=== PATIENT | male | born 1965 | race Caucasian/White ===

== ENCOUNTER 2017-11-13 21:15 | Inpatient (IN) ==
[2017-11-13] MEDS ORDERED: Naloxone 0.4 MG/ML INJ IVP PRN (22:35)
--- NOTE | 2017-11-13 22:42 | Internal Med History&Physical ---
Date of Encounter: 11/13/17 Time of Encounter: 22:39 Internal Medicine - H&P: HPI Chief complaint: Dyspnea Admitted From: Direct Admit Plans for Post Hospital Care: Home History of present illness: Mr. Sen is a 52 year old male with histor of COPD on 3 L chronically, chronic pain, Tobacco abuse who is transferred from [facility] due to worsening respiratory status. From documentations and talking to the patient and his significant other, the patient presented there with SOB for 3-4 days with associated productive cough. He was wheezing at the time but not here today. No fevers but chills. He was found to have bilateral infiltrates and was admitted yesterday night for COPD exacerbation and pneumonia. He was on about 2 L O2. This evening he apparently had sudden change in respiratory status and became tachypnic and tachycardic. They had to go up on his O2 needs. There was no hospitalist during the night and the hospitalist there called after hours to see if the patient can be transferred to here and he was accepted. Upon transfer , he was tachypnic and was having conversational dyspnea. He denied headache, fever, nausea, vomiting, chest pain, abdominal pain, diarrhea, constipation, urinary symptoms, or neurological symptoms. His significant other states that about 5 years ago he had an accidental fall and broke multiple ribs bilaterally requiring chest tube placement multiple times over the years. Past Med Surg Social Fam HX - Past Medical History Medical history: asthma, COPD, other Psychiatric history: depression - Past Surgical History Surgical History: no surgical history, other - Social History Smoking Status: Current every day smoker Smokeless Tobacco Status: No Alcohol use: none Drug use: none Internal Medicine - H&P: Meds Albuterol Sulfate [Albuterol Inhaler] 2 puff IH Q6HR 02/01/16 [History] Budesonide/Formoterol 160/4.5 [Symbicort 160/4.5] 1 puff IH BIDR 02/01/16 [ History] Gabapentin [Neurontin] 300 mg PO TID 02/01/16 [History] Oxycodone HCl/Acetaminophen [Percocet 10-325 mg Tablet] 1 each PO Q6H 05/10/17 [ History] 3 Allergy/AdvReac Type Severity Reaction Status Date / Time propoxyphene Allergy Rash Verified 11/12/17 16:42 [From Darvanessat-N] tramadol Allergy Palpitation Verified 02/01/16 11:52 s All Systems PM: A 10-system review of systems was performed and is negative for pertinent findings except as documented above in the HPI. Review of systems: All systems reviewed are negative except for what is mentioned above - Constitutional Vitals: Temp Pulse Resp BP Pulse Ox 97.6 F 112 26 179/55 96 11/13/17 22:35 11/13/17 22:35 11/13/17 22:35 11/13/17 22:35 11/13/17 22:35 Exam: GEN: NAD HEENT: AT, NC, No cyanosis, oral mucosa is moist, No JVD Lymphatics: No lymphadenoapthy Eyes: Extrocular muscles intact, anicteric CVS:RRR. S1, S2, No m/r/g RESP: Diminished breath sounds with coarse breath sounds throughout. ABD: Soft, NT, ND, +BS EXT: No edema, No rashes, 2+ DP NEURO: Nonfocal, CN II-XII intact, No focal motor or sensory deficits Psych: Cooperative, Not anxious or depressed Internal Med - H&P Results - Labs CBC & Chem 7: 11/13/17 23:03 - Assessment and plan (1) Acute respiratory failure with hypoxia Current Visit: Yes Status: Acute Assessment and plan: Was being treated for CAP and COPD exacerbation at [facility]. had worsening of respiratory status while there and transfered here. Currently on oxymask. Tachycardic. Will repeat basic labs, check lactic acid, check a CXR, ABG, BNP, D -dimers, EKG, Trops. O2 support and nebs for now and treat underlying causes as below. Management may change pending further work up. Consider a consult to pulm in the am. (2) Acute exacerbation of chronic obstructive airways disease Current Visit: No Status: Acute Assessment and plan: Will resume patient on IV steroids and nebs. O2 support and wean as tolerated. ABG now. May need Bipap. (3) Community acquired pneumonia Current Visit: No Status: Acute Assessment and plan: c/w levaquin for now Afebrile. check sputum cultures. check urine strep and legionella. check resp panel Qualifiers: Laterality: unspecified laterality Qualified Code(s): J18.9 - Pneumonia, unspecified organism (4) DVT prophylaxis Current Visit: Yes Status: Acute Assessment and plan: heparin SQ - Time Spent With Patient Total time spent is greater than 50% in coordination of care (as documented) at patient's floor/unit and/or counseling patient:
[2017-11-13 23:25] LABS: Basophils % 0.1 %; Hematocrit 35.5 % (37.5-50.1); Hemoglobin 11.6 g/dL (12.9-16.9); Immature Granulocytes % 0.6 % (0-4); Lymphocytes # 0.4 K/mcL (0.6-4.6); Lymphocytes % 3.3 %; Mean Corpuscular HGB Conc 32.7 g/dL (31.6-35.5); Mean Corpuscular Hemoglobin 31.4 pg (28.0-33.3); Mean Corpuscular Volume 96.2 fL (83.0-100.0); Mean Platelet Volume 9.4 fL (9.4-12.4); Monocytes # 0.4 K/mcL (0.0-1.3); Monocytes % 3.4 %; Neutrophils # 10.8 K/mcL (1.6-8.9); Platelet Count 299 K/mcL (140-400); Red Blood Count 3.69 M/mcL (4.19-5.50); Red Cell Distribution Width 13.9 % (11.5-14.5); Segmented Neutrophils % 92.6 %
[2017-11-13] MEDS ORDERED: *HR* OxyCODONE/APAP 10/325 TABLET PO SCH (23:45)
[2017-11-13 23:49] LABS: Alanine Aminotransferase 63 Units/L (7-52); Albumin 3.3 g/dL (3.5-5.7); Alkaline Phosphatase 119 Units/L (34-104); Aspartate Amino Transferase 40 Units/L (13-39); BUN/Creatinine Ratio 25 (6-26); Bilirubin,Total 0.3 mg/dL (0.3-1.0); Blood Urea Nitrogen 15 mg/dL (6-20); Calcium 9.1 mg/dL (8.6-10.3); Carbon Dioxide 29 mEq/L (23-29); Chloride 100 mEq/L (98-107); Globulin 3.4 g/dL (2.4-3.5); Glucose 285 mg/dL (70-105); Osmolality,Calculated 299 (280-300); Potassium 3.5 mEq/L (3.5-5.1); Sodium 139 mEq/L (136-145); Total Protein 6.7 g/dL (6.4-8.9); eGFR For African Americans > 60 (> 60); eGFR For Non-African Americans > 60 (> 60)
[2017-11-14] MEDS ORDERED: methylPREDNISolone 125 MG/2 ML VIAL IVP SCH
[2017-11-14] MEDS ORDERED: Acetaminophen 325 MG TABLET PO PRN ×2 (00:03→03:44)
[2017-11-14] MEDS: Ipratropium/Albuterol Neb 3 ML IH PRN (00:15)
[2017-11-14] MEDS ORDERED: Isovue-370 500 ML INFUS..BTL IV ONE ×2 (00:17→03:44)
[2017-11-14 00:35] LABS: Adenovirus Not Detected (Not Detect); Bordetella Pertussis Not Detected (Not Detect); Chlamydophila pneumoniae Not Detected (Not Detect); Coronavirus 229E Not Detected (Not Detect); Coronavirus HKU1 Not Detected (Not Detect); Coronavirus NL63 Not Detected (Not Detect); Coronavirus OC43 Not Detected (Not Detect); Human Metapneumovirus Not Detected (Not Detect); Human Rhinovirus/Enterovirus Not Detected (Not Detect); Influenza A Subtype 2009 H1 Not Detected (Not Detect); Influenza A Untypeable Not Detected (Not Detect); Influenza B Not Detected (Not Detect); Mycoplasma pneumoniae Not Detected (Not Detect); Parainfluenza Virus 1 Not Detected (Not Detect); Parainfluenza Virus 2 Not Detected (Not Detect); Parainfluenza Virus 3 Not Detected (Not Detect); Parainfluenza Virus 4 Not Detected (Not Detect); Respiratory Syncytial Virus Not Detected (Not Detect)
[2017-11-14] MEDS ORDERED: Ipratropium/Albuterol Neb 3 ML ONE (00:55)
[2017-11-14] MEDS ORDERED: Ipratropium/Albuterol Neb 3 ML IH PRN (00:55)
[2017-11-14] MEDS ORDERED: *HR* Heparin 5,000 UNIT/ML VIAL IVP PRN ×4 (01:22→03:44)
[2017-11-14] MEDS ORDERED: *HR* Heparin 5,000 UNIT/ML VIAL IVP ONE (01:22)
[2017-11-14] MEDS ORDERED: *HR* LORazepam 2 MG/ML VIAL ONE (01:23)
[2017-11-14] MEDS ORDERED: *HR* Metoprolol 5 MG/5 ML VIAL IVP ONE (01:29)
[2017-11-14] MEDS ORDERED: Heparin 25,000 UNIT/500 ML D5W 25,000 UNIT/500 ML BAG IVC SCH (01:30)
--- NOTE | 2017-11-14 01:38 | Event Note ---
Date of Encounter: 11/14/17 Time of Encounter: 01:36 Patient's labs came back with elevated D-dimers. He is labored breathing villanueva. Tachycardic and hypertensives. He couldnt lay flat for an EKG or CTA chest as he was restless and hemodynamically unstable. ABG 7.43, PCO2 46, PO2 57, HCO 31 D-dimers 961 Will start him on heparin empirically Bipap and transfer to ICU +/- intubation. CTA chest post hemodynamic stabilization. Ativan 2 mg IV now. Lopressor 5 mg IV as BP is in the 200s systolically. 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
[2017-11-14 02:56] LABS: Hematocrit 36.2 % (37.5-50.1); Hemoglobin 11.8 g/dL (12.9-16.9); Mean Corpuscular HGB Conc 32.6 g/dL (31.6-35.5); Mean Corpuscular Hemoglobin 31.1 pg (28.0-33.3); Mean Corpuscular Volume 95.5 fL (83.0-100.0); Mean Platelet Volume 9.3 fL (9.4-12.4); Platelet Count 300 K/mcL (140-400); Red Blood Count 3.79 M/mcL (4.19-5.50); Red Cell Distribution Width 13.8 % (11.5-14.5)
[2017-11-14 03:02] LABS: INR 1.4; Prothrombin Time 14.7 Seconds (9.4-12.1)
[2017-11-14 03:04] LABS: Activated Partial Thrombo Time 31.9 Seconds (26.0-36.0)
--- NOTE | 2017-11-14 03:05 | Pulmonology Consult Note ---
<Toni Pascual - Last Filed: 11/14/17 02:59> Date of Encounter: 11/14/17 Time of Encounter: 03:00 Assessment and Plan (1) Acute respiratory failure with hypoxia Current Visit: Yes Status: Acute Acute respiratory failure with hypoxia The patient is very distressed on oxymask, is not saturating well CXR demonstrates diffuse airspace disease suggestive of atypical pneumonia ABG demonstrates hypoxemia with slightly elevated pCO2 We will place the patient on BiPAP for now, carefully watch for need to intubate D-Dimer is elevated, we will get a CTA Chest when the patient can tolerate supine position (2) Community acquired pneumonia Current Visit: Yes Status: Acute Community acquired pneumonia Patient does technically meet SIRs criteria with tachycardia, tachypnea however I do think that this can more easily be explained by respiratory status I will check blood cultures, continue Levaquin Repeat ABG in the AM Qualifiers: Laterality: unspecified laterality Qualified Code(s): J18.9 - Pneumonia, unspecified organism (3) Acute exacerbation of chronic obstructive airways disease Current Visit: Yes Status: Acute Acute exacerbation of COPD We will use scheduled and PRN Duonebs IV Solumedrol History of Present Illness Consult date: 11/14/17 Requesting physician: Felicita So Reason for consult: dyspnea, COPD Chief complaint: Difficulty breathing History of present illness: Mr. Rai is a 52-year-old gentleman with history of COPD w/ 3 L of home O2 chronically presented to the [place] ED for shortness of breath for 3-4 days total. Apparently the patient had productive cough, and was generally short of breath. He was also very wheezy at that time. He was admitted to [place] for treatment of community-acquired pneumonia with acute exacerbation of COPD and was started on Levaquin. Overnight the patient became reportedly more dyspneic than prior with tachypnea and tachycardia and was not oxygenating appropriately so he was transferred to [facility] for more advanced care. He was initially placed on 2 N., however he became increasingly more distressed and was desaturating. There was concern the patient may require intubation due to respiratory fatigue, however he was stabilized on BiPAP. He was transferred to the ICU for more extensive respiratory care. Past Med Surg Social Fam HX - Past Medical History Medical history: asthma, COPD, other Psychiatric history: depression - Past Surgical History Surgical History: no surgical history, other - Social History Smoking Status: Current every day smoker Smokeless Tobacco Status: No Alcohol use: none Drug use: none Medications and Allergies Albuterol Sulfate [Albuterol Inhaler] 2 puff IH Q6HR 02/01/16 [History] Oxycodone HCl/Acetaminophen [Percocet 10-325 mg Tablet] 1 each PO Q6H 05/10/17 [ History] Fluticasone Furoate [Arnuity Ellipta] 1 puff IH DAILY 11/14/17 [History] Gabapentin [Neurontin] 600 mg PO QID 11/14/17 [History] Salmeterol Xinafoate [Serevent Diskus] 50 mcg IH DAILY 11/14/17 [History] 3 Allergy/AdvReac Type Severity Reaction Status Date / Time propoxyphene Allergy Rash Verified 11/14/17 12:58 [From Darvocet-N] tramadol Allergy Palpitation Verified 11/14/17 12:58 s All Systems: The remainder of the systems were reviewed and are negative Review of Systems: Constitutional: Denies fevers, chills, weight loss, generalized fatigue Head/Neck: Denies DANG, neck stiffness EENT: Denies vision changes/blurriness, rhinorrhea, congestion, sore throat CVS: Denies chest pain, palpitations, LARSEN, orthopnea, edema, PND Pulm: Admits to significant shortness of breath with sputum production on cough , denies hemoptysis. Admits to 3 L home O2 GI: Denies abdominal pain, nausea, vomiting, diarrhea, constipation, melena, hematemasis : Denies dysuria, increased frequency, urgency, hematuria Heme: Denies ease of bleeding or bruising MSK: Denies joint pain, limited ROM Skin: Denies rashes, ulcers, color changes Neuro: Denies DANG, paresthesias, focal deficits, ataxia Physical Examination Vital Signs: Vital Signs, Last 4 Hours Temp Pulse Resp BP Pulse Ox 11/14/17 02:00 28 169/98 98 11/14/17 01:16 97.9 F 130 30 158/137 100 11/13/17 23:59 105 159/93 11/13/17 23:31 97.6 F 169/106 Gen: Vitals noted. Moderately distressed oxymask HEENT: PERRL/EOMI, oropharynx clear, Normocephalic, atraumatic Neck: Supple. No adenopathy. Cardiac: RRR, no murmur, +S1/S2 Pulmonary: Diffuse wheezes with poor airflow b/l Abdomen: soft, nontender, BS noted, no guarding Back: Nontender throughout. MSK: ROM intact, no joint swelling noted Extremities: no BLE edema, nontender calf, no cyanosis or clubbing Neuro: A&Ox3, moves all extremities, no focal deficits Psych: Appropriate mood and behavior Results - Laboratory Findings CBC and BMP: 11/14/17 02:46 11/13/17 23:03 PT/INR, D-dimer D-Dimer 961 ng/mLFEU (0-500) H 11/13/17 23:03 Abnormal lab findings: Abnormal lab results WBC 11.4 K/mcL (4.3-11.1) H 11/14/17 02:46 RBC 3.79 M/mcL (4.19-5.50) L 11/14/17 02:46 Hgb 11.8 g/dL (12.9-16.9) L 11/14/17 02:46 Hct 36.2 % (37.5-50.1) L 11/14/17 02:46 MPV 9.3 fL (9.4-12.4) L 11/14/17 02:46 Neutrophils # 10.8 K/mcL (1.6-8.9) H 11/13/17 23:03 Lymphocytes # 0.4 K/mcL (0.6-4.6) L 11/13/17 23:03 D-Dimer 961 ng/mLFEU (0-500) H 11/13/17 23:03 Creatinine 0.59 mg/dL (0.70-1.30) L 11/13/17 23:03 Glucose 285 mg/dL (70-105) H 11/13/17 23:03 AST 40 Units/L (13-39) H 11/13/17 23:03 ALT 63 Units/L (7-52) H 11/13/17 23:03 Alkaline Phosphatase 119 Units/L (34-104) H 11/13/17 23:03 Troponin I 0.07 ng/mL (< 0.04) H* 11/13/17 23:03 B-Natriuretic Peptide 115 pg/mL (Less than 100) H 11/13/17 23:04 Albumin 3.3 g/dL (3.5-5.7) L 11/13/17 23:03 Albumin/Globulin Ratio 1.0 (1.1-2.2) L 11/13/17 23:03 - Clinical Findings Intake & Output: Intake & Output 11/13/17 11/13/17 11/14/17 15:59 23:59 07:59 Weight 70.7 kg Consult Discharge Plan - Plan Referrals: NONE,PCP [Primary Care Provider] - <Terrance Rodriges - Last Filed: 11/15/17 00:23> Date of Encounter: 11/15/17 All Systems: The remainder of the systems were reviewed and are negative Physical Examination Vital Signs: Vital Signs, Last 4 Hours Pulse Resp BP Pulse Ox 11/14/17 21:30 16 99 11/14/17 21:00 89 20 118/79 98 Results - Laboratory Findings CBC and BMP: 11/14/17 02:46 11/13/17 23:03 ABG ABG pH 7.41 pH Units (7.32-7.45) 11/14/17 04:53 ABG pCO2 55 mmHg (35-45) H 11/14/17 04:53 ABG pO2 94 mmHg (85-104) 11/14/17 04:53 ABG O2 Saturation 97 % (95-98) 11/14/17 04:53 PT/INR, D-dimer PT 14.7 Seconds (9.4-12.1) H 11/14/17 02:46 D-Dimer 961 ng/mLFEU (0-500) H 11/13/17 23:03 Abnormal lab findings: Abnormal lab results WBC 11.4 K/mcL (4.3-11.1) H 11/14/17 02:46 RBC 3.79 M/mcL (4.19-5.50) L 11/14/17 02:46 Hgb 11.8 g/dL (12.9-16.9) L 11/14/17 02:46 Hct 36.2 % (37.5-50.1) L 11/14/17 02:46 MPV 9.3 fL (9.4-12.4) L 11/14/17 02:46 Neutrophils # 10.8 K/mcL (1.6-8.9) H 11/13/17 23:03 Lymphocytes # 0.4 K/mcL (0.6-4.6) L 11/13/17 23:03 PT 14.7 Seconds (9.4-12.1) H 11/14/17 02:46 APTT 54.1 Seconds (26.0-36.0) H 11/14/17 16:49 D-Dimer 961 ng/mLFEU (0-500) H 11/13/17 23:03 ABG pCO2 55 mmHg (35-45) H 11/14/17 04:53 ABG HCO3 35 mEq/L (21-27) H 11/14/17 04:53 ABG Total CO2 37 mEq/L (20-26) H 11/14/17 04:53 ABG Base Excess 9 mEq/L (-2 to 3) H 11/14/17 04:53 Creatinine 0.59 mg/dL (0.70-1.30) L 11/13/17 23:03 Glucose 285 mg/dL (70-105) H 11/13/17 23:03 Lactic Acid 2.4 mmol/L (0.5-2.2) H 11/14/17 03:07 AST 40 Units/L (13-39) H 11/13/17 23:03 ALT 63 Units/L (7-52) H 11/13/17 23:03 Alkaline Phosphatase 119 Units/L (34-104) H 11/13/17 23:03 Troponin I 0.08 ng/mL (< 0.04) H* 11/14/17 09:38 B-Natriuretic Peptide 115 pg/mL (Less than 100) H 11/13/17 23:04 Albumin 3.3 g/dL (3.5-5.7) L 11/13/17 23:03 Albumin/Globulin Ratio 1.0 (1.1-2.2) L 11/13/17 23:03 - Microbiology Findings Microbiology Findings: Microbiology, Last 48 Hours 11/13/17 05:01 Legionella Antigen - Final Urine,Clean Catch 11/13/17 05:01 Streptococcus pneumoniae Antigen (M - Final Urine,Clean Catch - Clinical Findings Intake & Output: Intake & Output 11/14/17 11/14/1718 15:59 23:59 07:59 Intake Total 170 / 170 Output Total 1400 / 1400 Balance 170 / 170 -1400 / -1400 - Attending Attestation I saw and evaluated this patient and my medical decision-making was reviewed with the Resident Physician. I agree with the documented findings, disposition and treatment plan as described except to the extent set forth below. We independently had [id number] contact with the patient I spent 35 minutes of Critical Care time with this patient. It involved decision making of high complexity to assess, manipulate, and support vital organ system failure and/or to prevent further life threatening deterioration of the patient's condition. The time involved in the performance of separately reportable procedures was not counted toward critical care time. Patient seen and examined at bedside Labs, radiology, chart personally reviewed. Management was reviewed during multidisciplinary critical care rounds. 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 Ceftriaxone and Levofloxacin Heme/Onc:Labs reviewed Endo: Glucose Monitored Integ/MSK: Skin Care per routine ICU Nursing Protocol to prevent ulcers. Lines: All lines examined without evidence of infection : Dispo: High chance of respiratory failure CODE:Full Code
[2017-11-14] MEDS ORDERED: Naloxone 0.4 MG/ML INJ IVP PRN (03:44)
[2017-11-14] MEDS: Ipratropium/Albuterol Neb 3 ML IH SCH ×4 (04:00→21:30)
[2017-11-14] MEDS ORDERED: Ipratropium/Albuterol Neb 3 ML IH SCH (04:00)
[2017-11-14 04:59] LABS: ABG Base Excess 9 mEq/L (-2 to 3); ABG HCO3 35 mEq/L (21-27); ABG Oxygen Saturation 97 % (95-98); ABG PCO2 55 mmHg (35-45); ABG PH 7.41 pH Units (7.32-7.45); ABG PO2 94 mmHg (85-104); ABG TCO2 37 mEq/L (20-26)
[2017-11-14] MEDS: Heparin 25,000 UNIT/500 ML D5W 25,000 UNIT/500 ML BAG IVC SCH ×2 (05:09→10:44)
[2017-11-14] MEDS ORDERED: Bisacodyl 10 MG RECTAL SUPPOSITORY RC PRN (05:17)
[2017-11-14] MEDS ORDERED: *HR* OxyCODONE/APAP 10/325 TABLET PO SCH ×2 (05:45→06:00)
[2017-11-14] MEDS ORDERED: *HR* Heparin 5,000 UNIT/ML VIAL SQ SCH ×2 (06:00)
[2017-11-14] MEDS: methylPREDNISolone 125 MG/2 ML VIAL IVP SCH ×2 (08:57→17:48)
[2017-11-14] MEDS: Nicotine 21 MG PATCH.TD24 TD SCH (08:57)
[2017-11-14] MEDS: *HR* FentaNYL (PF) 100 MCG/2 ML VIAL IVP PRN ×2 (08:58→19:49)
[2017-11-14] MEDS ORDERED: Levofloxacin 750 MG/150 ML 750 MG/150 ML BAG IVPB SCH (09:00)
[2017-11-14] MEDS ORDERED: Gabapentin 300 MG CAPSULE PO SCH (09:00)
[2017-11-14] MEDS ORDERED: Nicotine 21 MG PATCH.TD24 TD SCH (09:00)
[2017-11-14] MEDS ORDERED: Budesonide/Formoterol 160/4.5 MDI IH SCH (10:00)
[2017-11-14] MEDS: Gabapentin 300 MG CAPSULE PO SCH ×4 (10:10→19:48)
[2017-11-14] MEDS: Levofloxacin 750 MG/150 ML 750 MG/150 ML BAG IVPB SCH (10:13)
[2017-11-14] MEDS: cefTRIAXone 2,000 MG in Water for inj. (sterile) 20 ML 20 ML IVP SCH (10:14)
[2017-11-14] MEDS: Budesonide/Formoterol 160/4.5 MDI IH SCH ×2 (11:34→21:30)
--- NOTE | 2017-11-14 16:25 | Electrocardiograph Report ---
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
[2017-11-14] MEDS: *HR* OxyCODONE/APAP 10/325 TABLET PO PRN (16:36)
--- NOTE | 2017-11-14 16:51 | Internal Med Progress Note ---
Date of Encounter: 11/14/17 Time of Encounter: 16:47 - Assessment and plan (1) Community acquired pneumonia Current Visit: Yes Status: Acute Assessment and plan: Continue ceftriaxone and the levofloxacin Qualifiers: Laterality: unspecified laterality Qualified Code(s): J18.9 - Pneumonia, unspecified organism (2) Acute exacerbation of chronic obstructive airways disease Current Visit: Yes Status: Acute Assessment and plan: Continue IV Solu-Medrol and antibiotics, nebulizer (3) Acute respiratory failure with hypoxia Current Visit: Yes Status: Acute Assessment and plan: Acute hypoxemic respiratory failure from COPD exacerbation and pneumonia requiring BiPAP Appreciated pulmonary consult - Time Spent With Patient Total time spent is greater than 50% in coordination of care (as documented) at patient's floor/unit and/or counseling patient: 25 - 35 minutes - Subjective Interval history: Mr. Sen is a 52 year old male with histor of COPD on 3 L chronically, chronic pain, Tobacco abuse who is transferred from [facility] due to worsening respiratory status. From documentations and talking to the patient and his significant other, the patient presented there with SOB for 3-4 days with associated productive cough. He was wheezing at the time but not here today. No fevers but chills. He was found to have bilateral infiltrates and was admitted yesterday night for COPD exacerbation and pneumonia. He was on about 2 L O2. This evening he apparently had sudden change in respiratory status and became tachypnic and tachycardic. Patient was admitted to ICU on continuos BiPAP, for COPD exacerbation and community-acquired pneumonia on 11/13 Patient is doing better, less laboring on breathing. FiO2 75% BiPAP sitting 15/ 5, saturation 100%. Continue current management. Appreciate pulmonary consult - Constitutional Vitals: Temp Pulse Resp BP Pulse Ox 97.6 F 81 28 123/83 100 11/14/17 08:00 11/14/17 14:00 11/14/17 14:00 11/14/17 14:11/14/17 14:00 General appearance: Present: mild distress, A&O X 3, pleasant Exam: CONSTITUTIONAL: patient appears as an age appropriate male in no acute distress. EYES Clear sclerae, bilateral pupils are equal, reactive to light. EMOI. RESPIRATORY: No accessory muscle use, bilateral wheezing, no crackles/rales. CARDIOVASCULAR: Regular heart rate, normal S1 and S2, no murmurs GASTROINTESTINAL: bowel sounds present, soft, no tenderness. MUSCULOSKELETAL: Joints in normal range of motion, no clubbing, no edema, no cyanosis. Bilateral peripheral pulses 2+. NEUROLOGIC: CN II to XII are grossly intact, no focal neurological deficit. Internal Medicine: Result - Labs CBC & Chem 7: 11/14/17 02:46 11/13/17 23:03 Labs: Short CBC 11/13/17 11/14/17 Range/Units 23:03 02:46 WBC 11.6 H 11.4 H (4.3-11.1) K/mcL Hgb 11.6 L 11.8 L (12.9-16.9) g/dL Hct 35.5 L 36.2 L (37.5-50.1) % Plt Count 299 300 (140-400) K/mcL Neutrophils # 10.8 H (1.6-8.9) K/mcL BMP 11/13/17 23:03 Sodium 139 Potassium 3.5 Chloride 100 Carbon Dioxide 29 BUN 15 Creatinine 0.59 L Glucose 285 H Calcium 9.1 Cardiac Enzymes 11/13/17 11/14/17 11/14/17 Range/Units 23:03 05:31 09:38 Troponin I 0.07 H* 0.12 H* 0.08 H* (< 0.04) ng/mL Liver Function 11/13/17 Range/Units 23:03 Total Bilirubin 0.3 (0.3-1.0) mg/dL AST 40 H (13-39) Units/L ALT 63 H (7-52) Units/L Alkaline Phosphatase 119 H (34-104) Units/L Albumin 3.3 L (3.5-5.7) g/dL - ABG Interpretation ABG results: ABG ABG pH 7.41 pH Units (7.32-7.45) 11/14/17 04:53 ABG pCO2 55 mmHg (35-45) H 11/14/17 04:53 ABG pO2 94 mmHg (85-104) 11/14/17 04:53 ABG O2 Saturation 97 % (95-98) 11/14/17 04:53 PT/INR, D-dimer PT 14.7 Seconds (9.4-12.1) H 11/14/17 02:46 D-Dimer 961 ng/mLFEU (0-500) H 11/13/17 23:03 - Impressions Impressions Chest X-Ray 11/13/17 22:39 IMPRESSION: Stable examination with diffuse airspace disease throughout both lungs suggesting atypical pneumonia. Emphysematous and bullous changes of the lungs. D/ / Hugo Archer MD / Hugo Archer MD Interpreting Provider: Hugo Archer MD Echocardiogram 11/14/17 01:58 Impressions: LVEF 60%. Indeterminate diastolic function. Normal right ventricular structure and function. Mild tricuspid regurgitation. No pulmonary hypertension. Left Ventricular Wall Motion: Rest Echo Findings All wall segments showed normal motion. Findings: Study Quality * Technically adequate exam. ECG Findings * Normal sinus rhythm. Left Ventricle * LVEF 60%. * Normal LV chamber size, wall thickness and function. * Indeterminate diastolic function. Right Ventricle * Normal right ventricular structure and function. Left Atrium * Normal left atrial size. Right Atrium * Normal right atrial size. Mitral Valve * Normal mitral valve structure. * No mitral stenosis. * No mitral regurgitation. Aortic Valve * No aortic regurgitation. * Trileaflet aortic valve. * No aortic stenosis. Tricuspid Valve * Tricuspid valve not well visualized. * Mild tricuspid regurgitation. * Estimated RA pressure is 3 mmHg. * Estimated RVSP is 22 mmHg. * No pulmonary hypertension. Pulmonic Valve * Pulmonic valve is not well visualized. * No pulmonic stenosis. * No pulmonic regurgitation. Pulmonary Artery * Pulmonary artery not well visualized. Aorta * Normally sized aortic root. Pericardium * There is no pericardial effusion present. Interatrial Septum * No evidence of PFO by color Doppler. IVC * Normal IVC dimensions and inspiratory collapse. Consult Discharge Plan - Plan Referrals: NONE,PCP [Primary Care Provider] -
[2017-11-15] MEDS: methylPREDNISolone 125 MG/2 ML VIAL IVP SCH ×4 (00:21→23:43)
[2017-11-15] MEDS: *HR* OxyCODONE/APAP 10/325 TABLET PO PRN ×3 (00:22→18:40)
--- NOTE | 2017-11-15 03:59 | Pulmonology Progress Note ---
<Toni Pascual - Last Filed: 11/15/17 03:56> Date of Encounter: 11/15/17 Time of Encounter: 03:57 Assessment and Plan (1) Acute respiratory failure with hypoxia Current Visit: Yes Status: Acute Acute respiratory failure with hypoxia The patient is very distressed on oxymask, is not saturating well CXR demonstrates diffuse airspace disease suggestive of atypical pneumonia ABG demonstrates hypoxemia with slightly elevated pCO2 Patient has required intermittent BiPAP and continuous O2 Despite elevated D-Dimer the patient does not appear high risk for PE, hold CTA Chest (2) Community acquired pneumonia Current Visit: Yes Status: Acute Community acquired pneumonia Patient does technically meet SIRs criteria with tachycardia, tachypnea however I do think that this can more easily be explained by respiratory status Blood cultures are still pending Continue antibiotics - Ceftriaxone was added yesterday Ceftriaxone - Day 2 Levaquin - Day 2 Repeat CBC and BMP in AM Qualifiers: Laterality: unspecified laterality Qualified Code(s): J18.9 - Pneumonia, unspecified organism (3) Acute exacerbation of chronic obstructive airways disease Current Visit: Yes Status: Acute Acute exacerbation of COPD We will use scheduled and PRN Duonebs IV Solumedrol Subjective Principal diagnosis: Hypoxic respiratory failure Interval history: The patient is resting comfortably in bed at time of examination. He us off BiPAP, however remains on nasal O2 at this time. He says that he is feeling significantly improved compared to yesterday. Objective PUL Vital signs: Last Vital Signs Temp 98 F 11/15/17 03:51 Pulse 74 11/15/17 02:00 Resp 18 11/15/17 02:00 BP 110/68 11/15/17 02:00 Pulse Ox 99 11/15/17 02:00 Gen: Vitals noted. Moderately distressed oxymask HEENT: PERRL/EOMI, oropharynx clear, Normocephalic, atraumatic Neck: Supple. No adenopathy. Cardiac: RRR, no murmur, +S1/S2 Pulmonary: Diffuse wheezes with poor airflow b/l but significant improvement from previous day Abdomen: soft, nontender, BS noted, no guarding Back: Nontender throughout. MSK: ROM intact, no joint swelling noted Extremities: no BLE edema, nontender calf, no cyanosis or clubbing Neuro: A&Ox3, moves all extremities, no focal deficits Psych: Appropriate mood and behavior Results - Laboratory Findings CBC and BMP: 11/14/17 02:46 11/13/17 23:03 ABG ABG pH 7.41 pH Units (7.32-7.45) 11/14/17 04:53 ABG pCO2 55 mmHg (35-45) H 11/14/17 04:53 ABG pO2 94 mmHg (85-104) 11/14/17 04:53 ABG O2 Saturation 97 % (95-98) 11/14/17 04:53 PT/INR, D-dimer PT 14.7 Seconds (9.4-12.1) H 11/14/17 02:46 D-Dimer 961 ng/mLFEU (0-500) H 11/13/17 23:03 Abnormal lab findings: Abnormal lab results WBC 11.4 K/mcL (4.3-11.1) H 11/14/17 02:46 RBC 3.79 M/mcL (4.19-5.50) L 11/14/17 02:46 Hgb 11.8 g/dL (12.9-16.9) L 11/14/17 02:46 Hct 36.2 % (37.5-50.1) L 11/14/17 02:46 MPV 9.3 fL (9.4-12.4) L 11/14/17 02:46 Neutrophils # 10.8 K/mcL (1.6-8.9) H 11/13/17 23:03 Lymphocytes # 0.4 K/mcL (0.6-4.6) L 11/13/17 23:03 PT 14.7 Seconds (9.4-12.1) H 11/14/17 02:46 APTT 54.1 Seconds (26.0-36.0) H 11/14/17 16:49 D-Dimer 961 ng/mLFEU (0-500) H 11/13/17 23:03 ABG pCO2 55 mmHg (35-45) H 11/14/17 04:53 ABG HCO3 35 mEq/L (21-27) H 11/14/17 04:53 ABG Total CO2 37 mEq/L (20-26) H 11/14/17 04:53 ABG Base Excess 9 mEq/L (-2 to 3) H 11/14/17 04:53 Creatinine 0.59 mg/dL (0.70-1.30) L 11/13/17 23:03 Glucose 285 mg/dL (70-105) H 11/13/17 23:03 POC Glucose 215 mg/dL (70-99) H 11/14/17 01:59 Lactic Acid 2.4 mmol/L (0.5-2.2) H 11/14/17 03:07 AST 40 Units/L (13-39) H 11/13/17 23:03 ALT 63 Units/L (7-52) H 11/13/17 23:03 Alkaline Phosphatase 119 Units/L (34-104) H 11/13/17 23:03 Troponin I 0.08 ng/mL (< 0.04) H* 11/14/17 09:38 B-Natriuretic Peptide 115 pg/mL (Less than 100) H 11/13/17 23:04 Albumin 3.3 g/dL (3.5-5.7) L 11/13/17 23:03 Albumin/Globulin Ratio 1.0 (1.1-2.2) L 11/13/17 23:03 - Microbiology Findings Microbiology Findings: Microbiology, Last 48 Hours 11/13/17 05:01 Legionella Antigen - Final Urine,Clean Catch 11/13/17 05:01 Streptococcus pneumoniae Antigen (M - Final Urine,Clean Catch - Clinical Findings Intake & Output: Intake & Output 11/14/17 11/14/17 11/15/17 15:59 23:59 07:59 Intake Total 170 / 170 Output Total 1400 / 1400 425 / 425 Balance 170 / 170 -1400 / -1400 -425 / -425 Weight 70.9 kg Consult Discharge Plan - Plan Referrals: NONE,PCP [Primary Care Provider] - <Terrance Rodriges - Last Filed: 11/15/17 21:08> Date of Encounter: 11/15/17 Objective PUL Vital signs: Last Vital Signs Temp 97.9 F 11/15/17 18:54 Pulse 99 11/15/17 18:00 Resp 20 11/15/17 18:00 BP 142/95 11/15/17 18:00 Pulse Ox 98 11/15/17 18:00 Results - Laboratory Findings CBC and BMP: 11/15/17 03:26 11/15/17 03:26 ABG ABG pH 7.41 pH Units (7.32-7.45) 11/14/17 04:53 ABG pCO2 55 mmHg (35-45) H 11/14/17 04:53 ABG pO2 94 mmHg (85-104) 11/14/17 04:53 ABG O2 Saturation 97 % (95-98) 11/14/17 04:53 PT/INR, D-dimer PT 14.7 Seconds (9.4-12.1) H 11/14/17 02:46 D-Dimer 961 ng/mLFEU (0-500) H 11/13/17 23:03 Abnormal lab findings: Abnormal lab results RBC 3.69 M/mcL (4.19-5.50) L 11/15/17 03:26 Hgb 11.7 g/dL (12.9-16.9) L 11/15/17 03:26 Hct 35.7 % (37.5-50.1) L 11/15/17 03:26 MPV 9.1 fL (9.4-12.4) L 11/15/17 03:26 Neutrophils # 9.8 K/mcL (1.6-8.9) H 11/15/17 03:26 PT 14.7 Seconds (9.4-12.1) H 11/14/17 02:46 APTT 54.1 Seconds (26.0-36.0) H 11/14/17 16:49 D-Dimer 961 ng/mLFEU (0-500) H 11/13/17 23:03 ABG pCO2 55 mmHg (35-45) H 11/14/17 04:53 ABG HCO3 35 mEq/L (21-27) H 11/14/17 04:53 ABG Total CO2 37 mEq/L (20-26) H 11/14/17 04:53 ABG Base Excess 9 mEq/L (-2 to 3) H 11/14/17 04:53 Carbon Dioxide 33 mEq/L (23-29) H 11/15/17 03:26 Creatinine 0.58 mg/dL (0.70-1.30) L 11/15/17 03:26 BUN/Creatinine Ratio 34 (6-26) H 11/15/17 03:26 Glucose 148 mg/dL (70-105) H 11/15/17 03:26 POC Glucose 215 mg/dL (70-99) H 11/14/17 01:59 Lactic Acid 2.4 mmol/L (0.5-2.2) H 11/14/17 03:07 AST 40 Units/L (13-39) H 11/13/17 23:03 ALT 63 Units/L (7-52) H 11/13/17 23:03 Alkaline Phosphatase 119 Units/L (34-104) H 11/13/17 23:03 Troponin I 0.08 ng/mL (< 0.04) H* 11/14/17 09:38 B-Natriuretic Peptide 115 pg/mL (Less than 100) H 11/13/17 23:04 Albumin 3.3 g/dL (3.5-5.7) L 11/13/17 23:03 Albumin/Globulin Ratio 1.0 (1.1-2.2) L 11/13/17 23:03 - Microbiology Findings Microbiology Findings: Microbiology, Last 48 Hours 11/14/17 02:46 Blood Culture - Preliminary Peripheral Venipuncture No growth. 11/14/17 02:46 Blood Culture - Preliminary Peripheral Venipuncture No growth. 11/13/17 05:01 Legionella Antigen - Final Urine,Clean Catch 11/13/17 05:01 Streptococcus pneumoniae Antigen (M - Final Urine,Clean Catch - Clinical Findings Intake & Output: Intake & Output 11/15/17 11/15/17 11/15/17 07:59 15:59 23:59 Intake Total 390 / 390 Output Total 625 / 625 275 / 275 400 / 400 Balance -625 / -625 115 / 115 -400 / -400 Weight 70.9 kg - Attending Attestation - Attending Attestation I saw and evaluated this patient and my medical decision-making was reviewed with the Resident Physician. I agree with the documented findings, disposition and treatment plan as described except to the extent set forth below. We independently had [id number] contact with the patient Patient seen and examined at bedside Labs, radiology, chart personally reviewed. Management was reviewed during multidisciplinary critical care rounds. STRUCTURAL DRAFTER: Patient is conscious oriented has some metabolic encephalopathy Pulm: Patient has acute on chronic hypoxic and hypercapnic respiratory failure treating as COPD exacerbation patient is responding well . Cards: Hemodynamically stable , ECHO showed normal RV function FEN-GI Advance diet as tolerated Renal: Labs reviewed ID:Community acquired pneumonia . Will discontinue cefriaxone to continue levofloxacin Heme/Onc:Labs reviewed Endo: Glucose Monitored Integ/MSK: Skin Care per routine ICU Nursing Protocol to prevent ulcers. Lines: All lines examined without evidence of infection : Dispo: Transfer to [facility] telemetry CODE:Full Code
[2017-11-15 04:00] LABS: Basophils % 0.1 %; Hematocrit 35.7 % (37.5-50.1); Hemoglobin 11.7 g/dL (12.9-16.9); Immature Granulocytes % 0.6 % (0-4); Lymphocytes # 0.6 K/mcL (0.6-4.6); Lymphocytes % 5.9 %; Mean Corpuscular HGB Conc 32.8 g/dL (31.6-35.5); Mean Corpuscular Hemoglobin 31.7 pg (28.0-33.3); Mean Corpuscular Volume 96.7 fL (83.0-100.0); Mean Platelet Volume 9.1 fL (9.4-12.4); Monocytes # 0.4 K/mcL (0.0-1.3); Monocytes % 3.5 %; Neutrophils # 9.8 K/mcL (1.6-8.9); Platelet Count 353 K/mcL (140-400); Red Blood Count 3.69 M/mcL (4.19-5.50); Red Cell Distribution Width 14.1 % (11.5-14.5); Segmented Neutrophils % 89.9 %
[2017-11-15 04:13] LABS: BUN/Creatinine Ratio 34 (6-26); Blood Urea Nitrogen 20 mg/dL (6-20); Calcium 8.9 mg/dL (8.6-10.3); Carbon Dioxide 33 mEq/L (23-29); Chloride 100 mEq/L (98-107); Glucose 148 mg/dL (70-105); Osmolality,Calculated 297 (280-300); Potassium 4.4 mEq/L (3.5-5.1); Sodium 141 mEq/L (136-145); eGFR For African Americans > 60 (> 60); eGFR For Non-African Americans > 60 (> 60)
[2017-11-15] MEDS: Ipratropium/Albuterol Neb 3 ML IH SCH ×4 (04:18→21:37)
[2017-11-15] MEDS: cefTRIAXone 2,000 MG in Water for inj. (sterile) 20 ML 20 ML IVP SCH (06:47)
[2017-11-15] MEDS ORDERED: *HR* Heparin 5,000 UNIT/ML VIAL SQ SCH ×2 (08:00→18:00)
[2017-11-15] MEDS: Gabapentin 300 MG CAPSULE PO SCH ×3 (08:51→21:15)
[2017-11-15] MEDS: Nicotine 21 MG PATCH.TD24 TD SCH (08:51)
[2017-11-15] MEDS: Levofloxacin 750 MG/150 ML 750 MG/150 ML BAG IVPB SCH (09:25)
[2017-11-15] MEDS ORDERED: Bisacodyl 10 MG RECTAL SUPPOSITORY RC PRN ×2 (10:25→15:32)
[2017-11-15] MEDS ORDERED: *HR* OxyCODONE/APAP 10/325 TABLET PO PRN (10:25)
[2017-11-15] MEDS ORDERED: *HR* FentaNYL (PF) 100 MCG/2 ML VIAL IVP PRN ×2 (10:25→15:32)
[2017-11-15] MEDS ORDERED: Acetaminophen 325 MG TABLET PO PRN ×2 (10:25→15:32)
[2017-11-15] MEDS ORDERED: Ipratropium/Albuterol Neb 3 ML IH PRN ×2 (10:25→15:32)
[2017-11-15] MEDS ORDERED: Naloxone 0.4 MG/ML INJ IVP PRN ×2 (10:25→15:32)
[2017-11-15] MEDS: Budesonide/Formoterol 160/4.5 MDI IH SCH ×2 (10:39→21:37)
[2017-11-15] MEDS ORDERED: Gabapentin 300 MG CAPSULE PO SCH ×2 (13:00→15:00)
--- NOTE | 2017-11-15 14:32 | Internal Med Progress Note ---
Date of Encounter: 11/15/17 Time of Encounter: 14:30 - Assessment and plan (1) Community acquired pneumonia Current Visit: Yes Status: Acute Assessment and plan: Acute hypoxic hypercapnic respiratory failure secondary to acute COPD exacerbation due to atypical pneumonia/community-acquired pneumonia, unknown agent Continue Levaquin day #2, continue IV steroids, oxygen therapy and DuoNeb's Discontinue Rocephin Qualifiers: Laterality: unspecified laterality Qualified Code(s): J18.9 - Pneumonia, unspecified organism (2) Acute exacerbation of chronic obstructive airways disease Current Visit: Yes Status: Acute Assessment and plan: steroids and nebs. O2 support and wean as tolerated. May need Bipap. (3) Acute respiratory failure with hypoxia Current Visit: Yes Status: Acute Assessment and plan: Was being treated for CAP and COPD exacerbation at [place]. had worsening of respiratory status while there and transfered here. Pulmonary service following the case (4) Tobacco abuse Current Visit: Yes Status: Acute Assessment and plan: Smoking cessation counseling, nicotine patch (5) Anemia Current Visit: No Status: Acute Qualifiers: Anemia type: iron deficiency Qualified Code(s): D50.8 - Other iron deficiency anemias - Time Spent With Patient Total time spent is greater than 50% in coordination of care (as documented) at patient's floor/unit and/or counseling patient: - Subjective Interval history: Still feeling short of breath and bringing up yellowish phlegm at times, denies any chest pain, no fevers, no chills, no abdominal pain or dysuria. No diarrhea - Constitutional Vitals: Temp Pulse Resp BP Pulse Ox 97.8 F 98 18 135/86 99 11/15/17 12:00 11/15/17 14:00 11/15/17 14:00 11/15/17 14:00 11/15/17 14:00 General appearance: Present: mild distress, A&O X 3, pleasant - Head Head exam: Present: atraumatic, normocephalic - Eye Eye exam: Present: PERRL, conjuntiva pink, sclera anicteric Pupils: Present: PERRL - Neck Neck exam general surgery: Present: supple, trachea midline. Absent: lymphadenopathy - Respiratory Respiratory exam: Present: CTAB, wheezes (Diffuse wheezing). Absent: accessory muscle use, rales, rhonchi - Cardiovascular Cardiovascular exam: Present: RRR, +S1, +S2. Absent: diastolic murmur, gallop, rubs, systolic murmur - GI/Abdominal GI/Abdominal exam: Present: normal bowel sounds, soft, no peritoneal signs. Absent: distended, tenderness - Extremities Exam Extremities exam: Present: warm, radial pulses palpable and symmetrical. Absent : calf tenderness, cyanotic, pedal edema - Neurological Exam Neurological exam: Present: CN II-XII intact, oriented X3, no focal deficits. Absent: pronater drift, facial droop, speech deficit - Skin Skin exam: Present: dry, intact Internal Medicine: Result - Labs CBC & Chem 7: 11/15/17 03:26 11/15/17 03:26 Labs: Short CBC 11/15/17 Range/Units 03:26 WBC 10.9 (4.3-11.1) K/mcL Hgb 11.7 L (12.9-16.9) g/dL Hct 35.7 L (37.5-50.1) % Plt Count 353 (140-400) K/mcL Neutrophils # 9.8 H (1.6-8.9) K/mcL BMP 11/15/17 03:26 Sodium 141 Potassium 4.4 Chloride 100 Carbon Dioxide 33 H BUN 20 Creatinine 0.58 L Glucose 148 H Calcium 8.9 - ABG Interpretation ABG results: ABG ABG pH 7.41 pH Units (7.32-7.45) 11/14/17 04:53 ABG pCO2 55 mmHg (35-45) H 11/14/17 04:53 ABG pO2 94 mmHg (85-104) 11/14/17 04:53 ABG O2 Saturation 97 % (95-98) 11/14/17 04:53 PT/INR, D-dimer PT 14.7 Seconds (9.4-12.1) H 11/14/17 02:46 D-Dimer 961 ng/mLFEU (0-500) H 11/13/17 23:03 - Impressions Impressions Echocardiogram 11/14/17 01:58 Impressions: LVEF 60%. Indeterminate diastolic function. Normal right ventricular structure and function. Mild tricuspid regurgitation. No pulmonary hypertension. Left Ventricular Wall Motion: Rest Echo Findings All wall segments showed normal motion. Findings: Study Quality * Technically adequate exam. ECG Findings * Normal sinus rhythm. Left Ventricle * LVEF 60%. * Normal LV chamber size, wall thickness and function. * Indeterminate diastolic function. Right Ventricle * Normal right ventricular structure and function. Left Atrium * Normal left atrial size. Right Atrium * Normal right atrial size. Mitral Valve * Normal mitral valve structure. * No mitral stenosis. * No mitral regurgitation. Aortic Valve * No aortic regurgitation. * Trileaflet aortic valve. * No aortic stenosis. Tricuspid Valve * Tricuspid valve not well visualized. * Mild tricuspid regurgitation. * Estimated RA pressure is 3 mmHg. * Estimated RVSP is 22 mmHg. * No pulmonary hypertension. Pulmonic Valve * Pulmonic valve is not well visualized. * No pulmonic stenosis. * No pulmonic regurgitation. Pulmonary Artery * Pulmonary artery not well visualized. Aorta * Normally sized aortic root. Pericardium * There is no pericardial effusion present. Interatrial Septum * No evidence of PFO by color Doppler. IVC * Normal IVC dimensions and inspiratory collapse. Consult Discharge Plan - Plan Referrals: NONE,PCP [Primary Care Provider] -
[2017-11-15] MEDS: Ipratropium/Albuterol Neb 3 ML IH PRN (15:42)
[2017-11-15] MEDS ORDERED: methylPREDNISolone 125 MG/2 ML VIAL IVP SCH (16:00)
[2017-11-15] MEDS ORDERED: Ipratropium/Albuterol Neb 3 ML IH SCH (16:00)
[2017-11-15] MEDS ORDERED: 0.9 % Sodium Chloride 1,000 ML IVC SCH (16:00)
[2017-11-15] MEDS: *HR* LORazepam 1 MG TABLET PO PRN ×2 (16:37→21:15)
[2017-11-15] MEDS: *HR* Heparin 5,000 UNIT/ML VIAL SQ SCH (18:40)
[2017-11-15] MEDS ORDERED: Budesonide/Formoterol 160/4.5 MDI IH SCH (22:00)
[2017-11-16] MEDS: *HR* OxyCODONE/APAP 10/325 TABLET PO PRN ×4 (00:52→19:03)
[2017-11-16] MEDS: Ipratropium/Albuterol Neb 3 ML IH SCH ×4 (03:28→22:40)
[2017-11-16 03:56] LABS: Basophils % 0.2 %; Hematocrit 37.1 % (37.5-50.1); Hemoglobin 11.9 g/dL (12.9-16.9); Immature Granulocytes % 0.8 % (0-4); Lymphocytes # 0.7 K/mcL (0.6-4.6); Lymphocytes % 7.5 %; Mean Corpuscular HGB Conc 32.1 g/dL (31.6-35.5); Mean Corpuscular Hemoglobin 30.7 pg (28.0-33.3); Mean Corpuscular Volume 95.9 fL (83.0-100.0); Monocytes # 0.3 K/mcL (0.0-1.3); Monocytes % 3.4 %; Neutrophils # 7.6 K/mcL (1.6-8.9); Platelet Count 349 K/mcL (140-400); Red Blood Count 3.87 M/mcL (4.19-5.50); Segmented Neutrophils % 88.1 %
[2017-11-16 04:17] LABS: BUN/Creatinine Ratio 43 (6-26); Blood Urea Nitrogen 24 mg/dL (6-20); Calcium 8.9 mg/dL (8.6-10.3); Carbon Dioxide 34 mEq/L (23-29); Chloride 101 mEq/L (98-107); Glucose 158 mg/dL (70-105); Osmolality,Calculated 295 (280-300); Potassium 4.7 mEq/L (3.5-5.1); Sodium 139 mEq/L (136-145); eGFR For African Americans > 60 (> 60); eGFR For Non-African Americans > 60 (> 60)
[2017-11-16] MEDS: *HR* Heparin 5,000 UNIT/ML VIAL SQ SCH ×2 (05:54→17:15)
[2017-11-16] MEDS ORDERED: cefTRIAXone 2,000 MG in Water for inj. (sterile) 20 ML 20 ML IVP SCH (07:00)
[2017-11-16] MEDS: Gabapentin 300 MG CAPSULE PO SCH ×4 (07:58→21:16)
[2017-11-16] MEDS: methylPREDNISolone 125 MG/2 ML VIAL IVP SCH ×2 (08:00→17:16)
[2017-11-16] MEDS: Nicotine 21 MG PATCH.TD24 TD SCH (08:01)
[2017-11-16] MEDS: Levofloxacin 750 MG/150 ML 750 MG/150 ML BAG IVPB SCH (08:02)
[2017-11-16] MEDS ORDERED: Levofloxacin 750 MG/150 ML 750 MG/150 ML BAG IVPB SCH (09:00)
[2017-11-16] MEDS ORDERED: Nicotine 21 MG PATCH.TD24 TD SCH (09:00)
[2017-11-16] MEDS: Budesonide/Formoterol 160/4.5 MDI IH SCH ×2 (09:42→22:40)
[2017-11-16] MEDS: *HR* LORazepam 1 MG TABLET PO PRN ×2 (11:23→17:40)
--- NOTE | 2017-11-16 13:26 | Internal Med Progress Note ---
Date of Encounter: 11/16/17 Time of Encounter: 13:26 - Assessment and plan (1) Community acquired pneumonia Current Visit: Yes Status: Acute Assessment and plan: Acute hypoxic hypercapnic respiratory failure secondary to acute COPD exacerbation due to atypical pneumonia/community-acquired pneumonia, unknown agent Not improving Continue Levaquin day #3, continue IV steroids, oxygen therapy and DuoNeb's Discontinued Rocephin Qualifiers: Laterality: unspecified laterality Qualified Code(s): J18.9 - Pneumonia, unspecified organism (2) Acute exacerbation of chronic obstructive airways disease Current Visit: Yes Status: Acute Assessment and plan: steroids and nebs. O2 support and wean as tolerated. May need Bipap. (3) Acute respiratory failure with hypoxia Current Visit: Yes Status: Acute Assessment and plan: Was being treated for CAP and COPD exacerbation at [place]. had worsening of respiratory status while there and transfered here. Pulmonary service following the case (4) Tobacco abuse Current Visit: Yes Status: Acute Assessment and plan: Smoking cessation counseling, nicotine patch (5) Anemia Current Visit: No Status: Acute Qualifiers: Anemia type: iron deficiency Qualified Code(s): D50.8 - Other iron deficiency anemias - Time Spent With Patient Total time spent is greater than 50% in coordination of care (as documented) at patient's floor/unit and/or counseling patient: - Subjective Interval history: Anxious, threatening to leave AGAINST MEDICAL ADVICE. Feeling short of breath and bringing up yellowish phlegm at times, denies any chest pain, no fevers, no chills, no abdominal pain or dysuria. No diarrhea - Constitutional Vitals: Temp Pulse Resp BP Pulse Ox 97.4 F L 82 22 111/71 97 11/16/17 08:21 11/16/17 11:25 11/16/17 11:25 11/16/17 11:25 11/16/17 11:25 General appearance: Present: mild distress, A&O X 3, pleasant Exam: - Head Head exam: Present: atraumatic, normocephalic - Eye Eye exam: Present: PERRL, conjuntiva pink, sclera anicteric Pupils: Present: PERRL - Neck Neck exam general surgery: Present: supple, trachea midline. Absent: lymphadenopathy - Respiratory Respiratory exam: Present: CTAB, wheezes (Diffuse wheezing). Absent: accessory muscle use, rales, rhonchi - Cardiovascular Cardiovascular exam: Present: RRR, +S1, +S2. Absent: diastolic murmur, gallop, rubs, systolic murmur - GI/Abdominal GI/Abdominal exam: Present: normal bowel sounds, soft, no peritoneal signs. Absent: distended, tenderness - Extremities Exam Extremities exam: Present: warm, radial pulses palpable and symmetrical. Absent : calf tenderness, cyanotic, pedal edema - Neurological Exam Neurological exam: Present: CN II-XII intact, oriented X3, no focal deficits. Absent: pronater drift, facial droop, speech deficit - Skin Skin exam: Present: dry, intact Internal Medicine: Result - Labs CBC & Chem 7: 11/16/17 03:37 11/16/17 03:37 Labs: Short CBC 11/16/17 Range/Units 03:37 WBC 8.6 (4.3-11.1) K/mcL Hgb 11.9 L (12.9-16.9) g/dL Hct 37.1 L (37.5-50.1) % Plt Count 349 (140-400) K/mcL Neutrophils # 7.6 (1.6-8.9) K/mcL BMP 11/16/17 03:37 Sodium 139 Potassium 4.7 Chloride 101 Carbon Dioxide 34 H BUN 24 H Creatinine 0.56 L Glucose 158 H Calcium 8.9 - ABG Interpretation ABG results: ABG ABG pH 7.41 pH Units (7.32-7.45) 11/14/17 04:53 ABG pCO2 55 mmHg (35-45) H 11/14/17 04:53 ABG pO2 94 mmHg (85-104) 11/14/17 04:53 ABG O2 Saturation 97 % (95-98) 11/14/17 04:53 PT/INR, D-dimer PT 14.7 Seconds (9.4-12.1) H 11/14/17 02:46 D-Dimer 961 ng/mLFEU (0-500) H 11/13/17 23:03 Consult Discharge Plan - Plan Referrals: NONE,PCP [Primary Care Provider] -
[2017-11-17] MEDS: methylPREDNISolone 125 MG/2 ML VIAL IVP SCH ×2 (00:29→08:54)
[2017-11-17] MEDS: *HR* OxyCODONE/APAP 10/325 TABLET PO PRN ×4 (00:32→21:10)
[2017-11-17] MEDS: *HR* LORazepam 1 MG TABLET PO PRN ×4 (02:22→21:13)
[2017-11-17] MEDS: Ipratropium/Albuterol Neb 3 ML IH SCH ×4 (03:35→21:51)
[2017-11-17 04:49] LABS: Basophils % 0.3 %; Hematocrit 39.6 % (37.5-50.1); Hemoglobin 12.8 g/dL (12.9-16.9); Immature Granulocytes % 2.1 % (0-4); Lymphocytes # 0.8 K/mcL (0.6-4.6); Lymphocytes % 8.3 %; Mean Corpuscular HGB Conc 32.3 g/dL (31.6-35.5); Mean Corpuscular Hemoglobin 31.1 pg (28.0-33.3); Mean Corpuscular Volume 96.4 fL (83.0-100.0); Monocytes # 0.2 K/mcL (0.0-1.3); Monocytes % 2.5 %; Neutrophils # 8.3 K/mcL (1.6-8.9); Platelet Count 350 K/mcL (140-400); Red Blood Count 4.11 M/mcL (4.19-5.50); Red Cell Distribution Width 13.8 % (11.5-14.5); Segmented Neutrophils % 86.8 %
[2017-11-17 05:03] LABS: BUN/Creatinine Ratio 38 (6-26); Blood Urea Nitrogen 22 mg/dL (6-20); Carbon Dioxide 36 mEq/L (23-29); Chloride 96 mEq/L (98-107); Glucose 154 mg/dL (70-105); Osmolality,Calculated 290 (280-300); Potassium 5.1 mEq/L (3.5-5.1); Sodium 137 mEq/L (136-145); eGFR For African Americans > 60 (> 60); eGFR For Non-African Americans > 60 (> 60)
[2017-11-17] MEDS: *HR* Heparin 5,000 UNIT/ML VIAL SQ SCH ×2 (06:13→18:38)
[2017-11-17] MEDS: Nicotine 21 MG PATCH.TD24 TD SCH (08:51)
[2017-11-17] MEDS: Gabapentin 300 MG CAPSULE PO SCH ×4 (08:51→20:42)
[2017-11-17] MEDS: Levofloxacin 750 MG/150 ML 750 MG/150 ML BAG IVPB SCH (08:52)
[2017-11-17] MEDS: Budesonide/Formoterol 160/4.5 MDI IH SCH ×2 (10:07→21:51)
--- NOTE | 2017-11-17 14:40 | Internal Med Progress Note ---
Date of Encounter: 11/17/17 Time of Encounter: 14:39 - Assessment and plan (1) Community acquired pneumonia Current Visit: Yes Status: Acute Assessment and plan: Acute hypoxic hypercapnic respiratory failure secondary to acute COPD exacerbation due to atypical pneumonia/community-acquired pneumonia, unknown agent Not improving Continue Levaquin day #4, continue IV solumedrol, oxygen therapy and DuoNeb's Discontinued Rocephin Qualifiers: Laterality: unspecified laterality Qualified Code(s): J18.9 - Pneumonia, unspecified organism (2) Acute exacerbation of chronic obstructive airways disease Current Visit: Yes Status: Acute Assessment and plan: steroids and nebs. O2 support and wean as tolerated. May need Bipap. (3) Acute respiratory failure with hypoxia Current Visit: Yes Status: Acute Assessment and plan: Was being treated for CAP and COPD exacerbation at [place]. had worsening of respiratory status while there and transfered here. Pulmonary service following the case (4) Tobacco abuse Current Visit: Yes Status: Acute Assessment and plan: Smoking cessation counseling, nicotine patch (5) Anemia Current Visit: No Status: Acute Qualifiers: Anemia type: iron deficiency Qualified Code(s): D50.8 - Other iron deficiency anemias - Time Spent With Patient Total time spent is greater than 50% in coordination of care (as documented) at patient's floor/unit and/or counseling patient: - Subjective Interval history: Anxious, threatened to leave AGAINST MEDICAL ADVICE on 11/16/17. More calm now Feeling short of breath and bringing up yellowish phlegm at times, denies any chest pain, no fevers, no chills, no abdominal pain or dysuria. No diarrhea - Constitutional Vitals: Temp Pulse Resp BP Pulse Ox 97.9 F 74 16 123/84 99 11/17/17 11:47 11/17/17 11:47 11/17/17 11:47 11/17/17 11:47 11/17/17 11:47 General appearance: Present: mild distress, A&O X 3, pleasant Exam: - Head Head exam: Present: atraumatic, normocephalic - Eye Eye exam: Present: PERRL, conjuntiva pink, sclera anicteric Pupils: Present: PERRL - Neck Neck exam general surgery: Present: supple, trachea midline. Absent: lymphadenopathy - Respiratory Respiratory exam: Present: CTAB, wheezes (Diffuse wheezing). Absent: accessory muscle use, rales, rhonchi - Cardiovascular Cardiovascular exam: Present: RRR, +S1, +S2. Absent: diastolic murmur, gallop, rubs, systolic murmur - GI/Abdominal GI/Abdominal exam: Present: normal bowel sounds, soft, no peritoneal signs. Absent: distended, tenderness - Extremities Exam Extremities exam: Present: warm, radial pulses palpable and symmetrical. Absent : calf tenderness, cyanotic, pedal edema - Neurological Exam Neurological exam: Present: CN II-XII intact, oriented X3, no focal deficits. Absent: pronater drift, facial droop, speech deficit - Skin Skin exam: Present: dry, intact Internal Medicine: Result - Labs CBC & Chem 7: 11/17/17 04:14 11/17/17 04:14 Labs: Short CBC 11/17/17 Range/Units 04:14 WBC 9.6 (4.3-11.1) K/mcL Hgb 12.8 L (12.9-16.9) g/dL Hct 39.6 (37.5-50.1) % Plt Count 350 (140-400) K/mcL Neutrophils # 8.3 (1.6-8.9) K/mcL BMP 11/17/17 04:14 Sodium 137 Potassium 5.1 Chloride 96 L Carbon Dioxide 36 H BUN 22 H Creatinine 0.58 L Glucose 154 H Calcium 9.0 - ABG Interpretation ABG results: ABG ABG pH 7.41 pH Units (7.32-7.45) 11/14/17 04:53 ABG pCO2 55 mmHg (35-45) H 11/14/17 04:53 ABG pO2 94 mmHg (85-104) 11/14/17 04:53 ABG O2 Saturation 97 % (95-98) 11/14/17 04:53 PT/INR, D-dimer PT 14.7 Seconds (9.4-12.1) H 11/14/17 02:46 D-Dimer 961 ng/mLFEU (0-500) H 11/13/17 23:03 Consult Discharge Plan - Plan Referrals: NONE,PCP [Primary Care Provider] -
[2017-11-17] MEDS: MethylPREDNISolone 40 MG/ML VIAL IVP SCH (16:51)
[2017-11-18] MEDS: MethylPREDNISolone 40 MG/ML VIAL IVP SCH ×3 (00:36→15:20)
[2017-11-18] MEDS: *HR* OxyCODONE/APAP 10/325 TABLET PO PRN ×4 (03:37→21:24)
[2017-11-18] MEDS: Ipratropium/Albuterol Neb 3 ML IH SCH ×4 (04:13→21:48)
[2017-11-18] MEDS: *HR* Heparin 5,000 UNIT/ML VIAL SQ SCH ×2 (06:29→15:20)
[2017-11-18] MEDS: Levofloxacin 750 MG/150 ML 750 MG/150 ML BAG IVPB SCH (07:48)
[2017-11-18] MEDS: Gabapentin 300 MG CAPSULE PO SCH ×4 (07:49→21:11)
[2017-11-18] MEDS: Nicotine 21 MG PATCH.TD24 TD SCH (07:49)
[2017-11-18] MEDS: *HR* LORazepam 1 MG TABLET PO PRN ×3 (07:55→21:11)
--- NOTE | 2017-11-18 09:09 | Internal Med Progress Note ---
<Isacc Fournier - Last Filed: 11/18/17 11:57> Date of Encounter: 11/18/17 Time of Encounter: 08:59 - Assessment and plan (1) Community acquired pneumonia Current Visit: Yes Status: Acute Assessment and plan: Acute hypoxic hypercapnic respiratory failure secondary to acute COPD exacerbation due to atypical pneumonia/community-acquired pneumonia, unknown agent - Respiratory infection panel negative - CXR on admission showing possible atypical pneumonia, bibasilar opacities. Repeat today showing COPD, improvement of consolidation - Mild improvement subjectively. Wheezing on exam. - Blood and urine cultures negative. Strep and legionella negative. - Pulmonology following, appreciate recommendations. Plan - Continue Levaquin day #5, continue IV solumedrol 40mg q8 hours, oxygen therapy and DuoNebs - Will obtain CTA to gain a better look at progress/alternative etiologies. Pending, D-dimer 961 - Consider broadening antibiotic spectrum if continues no improvement or if CT suggests worsening. - Rocephin discontinued on 11/17 Qualifiers: Laterality: unspecified laterality Qualified Code(s): J18.9 - Pneumonia, unspecified organism (2) Acute exacerbation of chronic obstructive airways disease Current Visit: Yes Status: Acute Assessment and plan: As above. steroids and nebs. O2 support and wean as tolerated. May need Bipap. (3) Anemia Current Visit: Yes Status: Acute Assessment and plan: H/H of 12.8/39.6. - This is improved from previous. - unknown baseline. - unclear etiology, RDW, MCV wnl. - COntinue supportive care Qualifiers: Anemia type: iron deficiency Iron deficiency anemia type: unspecified iron deficiency Qualified Code(s): D50.9 - Iron deficiency anemia, unspecified (4) Acute respiratory failure with hypoxia Current Visit: Yes Status: Acute Assessment and plan: - As above for Pneumonia and COPD. - Was being treated for CAP and COPD exacerbation at [facility]. had worsening of respiratory status while there and transfered here. - Pulmonary service following the case (5) Tobacco abuse Current Visit: Yes Status: Chronic Assessment and plan: Smoking cessation counseling, nicotine patch - Time Spent With Patient Total time spent is greater than 50% in coordination of care (as documented) at patient's floor/unit and/or counseling patient: 25 - 35 minutes - Subjective Interval history: patient seen and examined at bedside this AM. He reports he feels mildly improved from yesterday in his breathing. reports no cough, fevers, chills, chest pain. States he is on 3-4 L of home O2. - Constitutional Vitals: Temp Pulse Resp BP Pulse Ox 98.0 F 78 26 143/92 98 11/18/17 03:50 11/18/17 03:50 11/18/17 04:13 11/18/17 03:50 11/18/17 04:13 General appearance: Present: mild distress, A&O X 3, pleasant Exam: Gen.: Vitals noted. No acute distress. AAOx3 HEENT: PERRL/EOMI, oropharynx clear, Normocephalic, atraumatic, MMM Cardiac: RRR, no murmur, +S1/S2 Pulmonary: Diffuse wheezing present on auscultation. equal chest expansion Abdomen: soft, nontender, BS noted, no guarding MSK: ROM intact, no joint swelling noted Extremities: no BLE edema, nontender calf, no cyanosis or clubbing Neuro: A&Ox3, moves all extremities, no focal deficits Psych: Appropriate mood and behavior Internal Medicine: Result - Labs CBC & Chem 7: 11/17/17 04:14 11/17/17 04:14 - ABG Interpretation ABG results: ABG ABG pH 7.41 pH Units (7.32-7.45) 11/14/17 04:53 ABG pCO2 55 mmHg (35-45) H 11/14/17 04:53 ABG pO2 94 mmHg (85-104) 11/14/17 04:53 ABG O2 Saturation 97 % (95-98) 11/14/17 04:53 PT/INR, D-dimer PT 14.7 Seconds (9.4-12.1) H 11/14/17 02:46 D-Dimer 961 ng/mLFEU (0-500) H 11/13/17 23:03 Consult Discharge Plan - Plan Referrals: NONE,PCP [Primary Care Provider] - <Nixon Fernández - Last Filed: 11/18/17 15:54> Date of Encounter: 11/18/17 - Assessment and plan (1) Acute respiratory failure with hypoxia Current Visit: Yes Status: Acute (2) Acute exacerbation of chronic obstructive airways disease Current Visit: Yes Status: Acute (3) Community acquired pneumonia Current Visit: Yes Status: Acute Qualifiers: Laterality: unspecified laterality Qualified Code(s): J18.9 - Pneumonia, unspecified organism (4) Anemia Current Visit: Yes Status: Chronic Qualifiers: Anemia type: iron deficiency Iron deficiency anemia type: unspecified iron deficiency Qualified Code(s): D50.9 - Iron deficiency anemia, unspecified (5) Tobacco abuse Current Visit: Yes Status: Chronic - Time Spent With Patient Total time spent is greater than 50% in coordination of care (as documented) at patient's floor/unit and/or counseling patient: - Constitutional Vitals: Temp Pulse Resp BP Pulse Ox 98.0 F 84 16 133/80 97 11/18/17 12:12 11/18/17 12:12 11/18/17 12:12 11/18/17 12:12 11/18/17 12:12 Internal Medicine: Result - Labs CBC & Chem 7: 11/17/17 04:14 11/17/17 04:14 - ABG Interpretation ABG results: ABG ABG pH 7.41 pH Units (7.32-7.45) 11/14/17 04:53 ABG pCO2 55 mmHg (35-45) H 11/14/17 04:53 ABG pO2 94 mmHg (85-104) 11/14/17 04:53 ABG O2 Saturation 97 % (95-98) 11/14/17 04:53 PT/INR, D-dimer PT 14.7 Seconds (9.4-12.1) H 11/14/17 02:46 D-Dimer 961 ng/mLFEU (0-500) H 11/13/17 23:03 - Impressions Impressions Chest X-Ray 11/18/17 09:41 IMPRESSION: COPD. D/ / 11/18/2017 10:57:38 Bharat Lopez MD / Idalia Horton Interpreting Provider: Bharat Lopez MD Chest CTA 11/18/17 11:55 IMPRESSION: 1. No pulmonary embolus is identified, although motion does somewhat limit the evaluation of the more peripheral pulmonary arteries. . 2. Multifocal bronchopneumonia suspected, as on 11/13/2017. 3. Bullous emphysema in the lung apices. D/ / Benjamín Amezcua / Benjamín Amezcua Interpreting Provider: Benjamín Amezcua - Attending Attestation I examined this patient and my medical decision-making was reviewed with the Resident Physician on 11/18/17. I agree with the documented findings, disposition and treatment plan as described except to the extent set forth below. Mr Sen is currently admitted for acute multifocal pneumonia and COPD. He remains moderate to high risk due to potential for worsening clinical and respiratory status. Mr Sen is still very congested and dyspneic. No fever. Coughing but no sputum production. No GI issues. Exam alert Mod distress due to dyspnea at rest. Mucus membranes dry Heart reg and not tachy Lungs with diffuse rhonchi and wheeze Abd soft I/P 1. Acute hypoxic resp failure 2. Multifocal pneumonia 3. COPD Further diagnoses and plan as above CT chest done - severe bullous emphysema - pneumonia appears somewhat better.
[2017-11-18] MEDS: Budesonide/Formoterol 160/4.5 MDI IH SCH ×2 (10:01→21:48)
[2017-11-18] MEDS ORDERED: Isovue-370 500 ML INFUS..BTL IV ONE (11:55)
[2017-11-18] MEDS ORDERED: Chloraseptic Spray 177 ML BOTTLE MM PRN (16:50)
[2017-11-19] MEDS: MethylPREDNISolone 40 MG/ML VIAL IVP SCH ×3 (01:41→20:08)
[2017-11-19 02:32] LABS: Basophils # 0.1 K/mcL (0.0-0.2); Basophils % 0.4 %; Hematocrit 40.4 % (37.5-50.1); Hemoglobin 13.1 g/dL (12.9-16.9); Immature Granulocytes % 2.5 % (0-4); Lymphocytes # 1.5 K/mcL (0.6-4.6); Lymphocytes % 12.2 %; Mean Corpuscular HGB Conc 32.4 g/dL (31.6-35.5); Mean Corpuscular Hemoglobin 30.3 pg (28.0-33.3); Mean Corpuscular Volume 93.5 fL (83.0-100.0); Mean Platelet Volume 8.9 fL (9.4-12.4); Monocytes # 0.5 K/mcL (0.0-1.3); Monocytes % 4.1 %; Neutrophils # 10.1 K/mcL (1.6-8.9); Platelet Count 369 K/mcL (140-400); Red Blood Count 4.32 M/mcL (4.19-5.50); Red Cell Distribution Width 13.5 % (11.5-14.5); Segmented Neutrophils % 80.8 %
[2017-11-19 02:41] LABS: BUN/Creatinine Ratio 37 (6-26); Blood Urea Nitrogen 22 mg/dL (6-20); Calcium 8.6 mg/dL (8.6-10.3); Carbon Dioxide 38 mEq/L (23-29); Chloride 93 mEq/L (98-107); Glucose 113 mg/dL (70-105); Osmolality,Calculated 286 (280-300); Potassium 4.3 mEq/L (3.5-5.1); Sodium 136 mEq/L (136-145); eGFR For African Americans > 60 (> 60); eGFR For Non-African Americans > 60 (> 60)
[2017-11-19] MEDS: *HR* OxyCODONE/APAP 10/325 TABLET PO PRN ×4 (03:33→22:27)
[2017-11-19] MEDS: Ipratropium/Albuterol Neb 3 ML IH SCH ×4 (04:01→22:14)
[2017-11-19] MEDS: *HR* Heparin 5,000 UNIT/ML VIAL SQ SCH ×2 (06:22→16:24)
[2017-11-19] MEDS: Gabapentin 300 MG CAPSULE PO SCH ×4 (08:20→20:07)
[2017-11-19] MEDS: *HR* LORazepam 1 MG TABLET PO PRN ×3 (08:20→22:27)
[2017-11-19] MEDS: Levofloxacin 750 MG/150 ML 750 MG/150 ML BAG IVPB SCH (08:21)
[2017-11-19] MEDS: Nicotine 21 MG PATCH.TD24 TD SCH (08:21)
--- NOTE | 2017-11-19 08:54 | Internal Med Progress Note ---
<Isacc Fournier - Last Filed: 11/19/17 10:24> Date of Encounter: 11/19/17 Time of Encounter: 08:53 - Assessment and plan (1) Community acquired pneumonia Current Visit: Yes Status: Acute Assessment and plan: Acute hypoxic hypercapnic respiratory failure secondary to acute COPD exacerbation due to atypical pneumonia/community-acquired pneumonia, unknown agent - Respiratory infection panel negative - CXR on admission showing possible atypical pneumonia, bibasilar opacities. - Repeat CT 11/18 showing COPD, improvement of multifocal consolidations - Mild improvement subjectively. Wheezing on exam. - Blood and urine cultures negative. Strep and legionella negative. - Pulmonology following, appreciate recommendations. Plan - Continue Levaquin day #6, continue IV solumedrol 40mg q8 hours, oxygen therapy and DuoNebs - This may be his new baseline given bullous emphysema seen on CT scan - Rocephin discontinued on 11/17 Qualifiers: Laterality: unspecified laterality Qualified Code(s): J18.9 - Pneumonia, unspecified organism (2) Acute exacerbation of chronic obstructive airways disease Current Visit: Yes Status: Acute Assessment and plan: As above. steroids and nebs. O2 support and wean as tolerated. May need Bipap PRN at home. (3) Anemia Current Visit: Yes Status: Chronic Assessment and plan: H/H of 13.1/40.4 - This is improved from previous. Stable - unknown baseline. - unclear etiology, RDW, MCV wnl. - COntinue supportive care Qualifiers: Anemia type: iron deficiency Iron deficiency anemia type: unspecified iron deficiency Qualified Code(s): D50.9 - Iron deficiency anemia, unspecified (4) Acute respiratory failure with hypoxia Current Visit: Yes Status: Acute Assessment and plan: - As above for Pneumonia and COPD. - Was being treated for CAP and COPD exacerbation at [facility]. had worsening of respiratory status while there and transfered here. - Pulmonary service following the case (5) Tobacco abuse Current Visit: Yes Status: Chronic Assessment and plan: Smoking cessation counseling, nicotine patch (6) DVT prophylaxis Current Visit: Yes Status: Acute Assessment and plan: heparin SQ 5000 q12 (7) Multifocal pneumonia Current Visit: Yes Status: Acute Assessment and plan: - As above on acute on chronic respiratory failure - Time Spent With Patient Total time spent is greater than 50% in coordination of care (as documented) at patient's floor/unit and/or counseling patient: less than 15 minutes - Subjective Interval history: patient seen and examined at bedside this AM. He reports he feels mildly improved from yesterday in his breathing. reports no cough, fevers, chills, chest pain. States he is on 3-4 L of home O2. States that he feels he is ready to go home, however has convinced him that he should stay until treatment is complete. - Constitutional Vitals: Temp Pulse Resp BP Pulse Ox 98.6 F 84 16 139/77 96 11/19/17 06:33 11/19/17 06:33 11/19/17 06:33 11/19/17 06:33 11/19/17 06:33 General appearance: Present: mild distress, A&O X 3, pleasant Exam: Gen.: Vitals noted. No acute distress. AAOx3 HEENT: PERRL/EOMI, oropharynx clear, Normocephalic, atraumatic Cardiac: RRR, no murmur, +S1/S2 Pulmonary: Diffuse wheezing present bilaterally mildly improved, equal chest expansion Abdomen: soft, nontender, BS noted, no guarding MSK: ROM intact, no joint swelling noted Extremities: no BLE edema, nontender calf, no cyanosis or clubbing Neuro: A&Ox3, moves all extremities, no focal deficits Psych: Appropriate mood and behavior Internal Medicine: Result - Labs CBC & Chem 7: 11/19/17 01:55 11/19/17 01:55 Labs: Short CBC 11/19/17 Range/Units 01:55 WBC 12.4 H (4.3-11.1) K/mcL Hgb 13.1 (12.9-16.9) g/dL Hct 40.4 (37.5-50.1) % Plt Count 369 (140-400) K/mcL Neutrophils # 10.1 H (1.6-8.9) K/mcL BMP 11/19/17 01:55 Sodium 136 Potassium 4.3 Chloride 93 L Carbon Dioxide 38 H BUN 22 H Creatinine 0.59 L Glucose 113 H Calcium 8.6 - ABG Interpretation ABG results: ABG ABG pH 7.41 pH Units (7.32-7.45) 11/14/17 04:53 ABG pCO2 55 mmHg (35-45) H 11/14/17 04:53 ABG pO2 94 mmHg (85-104) 11/14/17 04:53 ABG O2 Saturation 97 % (95-98) 11/14/17 04:53 PT/INR, D-dimer PT 14.7 Seconds (9.4-12.1) H 11/14/17 02:46 D-Dimer 961 ng/mLFEU (0-500) H 11/13/17 23:03 - Impressions Impressions Chest X-Ray 11/18/17 09:41 IMPRESSION: COPD. D/ / 11/18/2017 10:57:38 Bharat Lopez MD / Idalia Horton Interpreting Provider: Bharat Lopez MD Chest CTA 11/18/17 11:55 IMPRESSION: 1. No pulmonary embolus is identified, although motion does somewhat limit the evaluation of the more peripheral pulmonary arteries. . 2. Multifocal bronchopneumonia suspected, as on 11/13/2017. 3. Bullous emphysema in the lung apices. D/ / Benjamín Amezcua / Benjamín Amezcua Interpreting Provider: Benjamín Amezcua Consult Discharge Plan - Plan Referrals: NONE,PCP [Primary Care Provider] - <Nixon Fernández - Last Filed: 11/19/17 16:54> Date of Encounter: 11/19/17 - Assessment and plan (1) Acute respiratory failure with hypoxia Current Visit: Yes Status: Acute (2) Acute exacerbation of chronic obstructive airways disease Current Visit: Yes Status: Acute (3) Community acquired pneumonia Current Visit: Yes Status: Acute Qualifiers: Laterality: unspecified laterality Qualified Code(s): J18.9 - Pneumonia, unspecified organism (4) Anemia Current Visit: Yes Status: Chronic Qualifiers: Anemia type: iron deficiency Iron deficiency anemia type: other iron deficiency Qualified Code(s): D50.8 - Other iron deficiency anemias (5) Tobacco abuse Current Visit: Yes Status: Chronic (6) Multifocal pneumonia Current Visit: Yes Status: Acute (7) DVT prophylaxis Current Visit: Yes Status: Acute - Time Spent With Patient Total time spent is greater than 50% in coordination of care (as documented) at patient's floor/unit and/or counseling patient: - Constitutional Vitals: Temp Pulse Resp BP Pulse Ox 98.0 F 88 18 129/80 97 11/19/17 14:27 11/19/17 14:27 11/19/17 16:29 11/19/17 14:27 11/19/17 16:29 Internal Medicine: Result - Labs CBC & Chem 7: 11/19/17 01:55 11/19/17 01:55 Labs: Short CBC 11/19/17 Range/Units 01:55 WBC 12.4 H (4.3-11.1) K/mcL Hgb 13.1 (12.9-16.9) g/dL Hct 40.4 (37.5-50.1) % Plt Count 369 (140-400) K/mcL Neutrophils # 10.1 H (1.6-8.9) K/mcL BMP 11/19/17 01:55 Sodium 136 Potassium 4.3 Chloride 93 L Carbon Dioxide 38 H BUN 22 H Creatinine 0.59 L Glucose 113 H Calcium 8.6 - ABG Interpretation ABG results: ABG ABG pH 7.41 pH Units (7.32-7.45) 11/14/17 04:53 ABG pCO2 55 mmHg (35-45) H 11/14/17 04:53 ABG pO2 94 mmHg (85-104) 11/14/17 04:53 ABG O2 Saturation 97 % (95-98) 11/14/17 04:53 PT/INR, D-dimer PT 14.7 Seconds (9.4-12.1) H 11/14/17 02:46 D-Dimer 961 ng/mLFEU (0-500) H 11/13/17 23:03 - Attending Attestation I examined this patient and my medical decision-making was reviewed with the Resident Physician on 11/19/17. I agree with the documented findings, disposition and treatment plan as described except to the extent set forth below. Mr Sen is currently admitted for acute hypoxic resp failure and pneumonia. He remains moderate to high risk due to potential for worsening clinical status. Mr Sen is about the same. He is still congested and wheezy. No fever. Some cough but nonproductive. No GI issues. Exam alert Comfortable Mucus membranes dry Heart distant Diffuse wheeze and rhonchi Abd soft I/P 1. Hypoxia 2. PNA Further diagnoses and plan as above.
[2017-11-19] MEDS: Budesonide/Formoterol 160/4.5 MDI IH SCH ×2 (10:22→22:14)
[2017-11-20] MEDS: Ipratropium/Albuterol Neb 3 ML IH SCH ×4 (03:29→21:29)
[2017-11-20] MEDS: *HR* OxyCODONE/APAP 10/325 TABLET PO PRN ×3 (04:53→17:30)
[2017-11-20 04:55] LABS: Basophils # 0.1 K/mcL (0.0-0.2); Basophils % 0.5 %; Hematocrit 39.8 % (37.5-50.1); Hemoglobin 13.2 g/dL (12.9-16.9); Immature Granulocytes % 2.4 % (0-4); Lymphocytes # 0.8 K/mcL (0.6-4.6); Lymphocytes % 7.6 %; Mean Corpuscular HGB Conc 33.2 g/dL (31.6-35.5); Mean Corpuscular Hemoglobin 30.6 pg (28.0-33.3); Mean Corpuscular Volume 92.1 fL (83.0-100.0); Mean Platelet Volume 8.8 fL (9.4-12.4); Monocytes # 0.4 K/mcL (0.0-1.3); Monocytes % 3.9 %; Neutrophils # 9.2 K/mcL (1.6-8.9); Platelet Count 309 K/mcL (140-400); Red Blood Count 4.32 M/mcL (4.19-5.50); Red Cell Distribution Width 13.4 % (11.5-14.5); Segmented Neutrophils % 85.6 %
[2017-11-20] MEDS: *HR* Heparin 5,000 UNIT/ML VIAL SQ SCH ×2 (05:01→17:30)
[2017-11-20] MEDS: Nicotine 21 MG PATCH.TD24 TD SCH (08:31)
[2017-11-20] MEDS: Levofloxacin 750 MG/150 ML 750 MG/150 ML BAG IVPB SCH (08:31)
[2017-11-20] MEDS: *HR* LORazepam 1 MG TABLET PO PRN ×3 (08:32→21:48)
[2017-11-20] MEDS: MethylPREDNISolone 40 MG/ML VIAL IVP SCH (08:32)
[2017-11-20] MEDS: Gabapentin 300 MG CAPSULE PO SCH ×4 (08:33→20:15)
[2017-11-20] MEDS: Budesonide/Formoterol 160/4.5 MDI IH SCH ×2 (09:51→21:28)
--- NOTE | 2017-11-20 13:51 | Internal Med Progress Note ---
Date of Encounter: 11/20/17 Time of Encounter: 13:51 - Assessment and plan (1) Acute respiratory failure with hypoxia Current Visit: Yes Status: Acute Assessment and plan: Slowly improving. Anticipate will be able to d/c in next 24 hours. (2) Acute exacerbation of chronic obstructive airways disease Current Visit: Yes Status: Acute Assessment and plan: Has been doing OK without bipap over last couple nights. Will transition to PO steroids tonight. If does OK will plan for d/c tomorrow if no issues. (3) Community acquired pneumonia Current Visit: Yes Status: Acute Assessment and plan: Acute hypoxic hypercapnic respiratory failure secondary to acute COPD exacerbation due to atypical pneumonia/community-acquired pneumonia, unknown agent - Respiratory infection panel negative - CXR on admission showing possible atypical pneumonia, bibasilar opacities. - Repeat CT 11/18 showing COPD, improvement of multifocal consolidations - Mild improvement subjectively. Wheezing on exam. - Blood and urine cultures negative. Strep and legionella negative. - Pulmonology following, appreciate recommendations. Plan - Levaquin day 7, will not need abx at discharge Switched to PO steroids tonight. Qualifiers: Laterality: unspecified laterality Qualified Code(s): J18.9 - Pneumonia, unspecified organism (4) Anemia Current Visit: Yes Status: Chronic Assessment and plan: - Chronic disease. Qualifiers: Anemia type: iron deficiency Iron deficiency anemia type: other iron deficiency Qualified Code(s): D50.8 - Other iron deficiency anemias (5) Tobacco abuse Current Visit: Yes Status: Chronic Assessment and plan: Smoking cessation counseling, nicotine patch (6) Multifocal pneumonia Current Visit: Yes Status: Acute Assessment and plan: - As above on acute on chronic respiratory failure (7) DVT prophylaxis Current Visit: Yes Status: Acute Assessment and plan: heparin SQ 5000 q12 - Time Spent With Patient Total time spent is greater than 50% in coordination of care (as documented) at patient's floor/unit and/or counseling patient: - Subjective Interval history: Mr Sen is currently admitted with acute exac COPD. He has had very slow improvement. He remains moderate to high risk due to potential for worsening clinical status. Mr Sen wants to go home. He feels his breathing is better though not at baseline. No fever. No CP. No GI issues. Was up walking around in halls today and said he did get dyspneic more. - Constitutional Vitals: Temp Pulse Resp BP Pulse Ox 98 F 94 18 118/80 94 11/20/17 07:31 11/20/17 07:31 11/20/17 09:53 11/20/17 07:31 11/20/17 09:53 General appearance: Present: mild distress, A&O X 3, pleasant - Head Head exam: Present: normocephalic - Eye Eye exam: Present: conjuntiva pink - ENT ENT exam: Present: mucous membranes dry - Respiratory Respiratory exam: Present: rhonchi, wheezes Additional comments: Overall improving over last 2 days. - Cardiovascular Cardiovascular exam: Present: RRR. Absent: tachycardia - GI/Abdominal GI/Abdominal exam: Present: soft. Absent: tenderness - Extremities Exam Extremities exam: Present: warm. Absent: tenderness - Neurological Exam Neurological exam: Present: alert, oriented X3, no focal deficits - Skin Skin exam: Present: dry, warm Internal Medicine: Result - Labs CBC & Chem 7: 11/20/17 04:28 11/19/17 01:55 Labs: Short CBC 11/20/17 Range/Units 04:28 WBC 10.7 (4.3-11.1) K/mcL Hgb 13.2 (12.9-16.9) g/dL Hct 39.8 (37.5-50.1) % Plt Count 309 (140-400) K/mcL Neutrophils # 9.2 H (1.6-8.9) K/mcL - ABG Interpretation ABG results: ABG ABG pH 7.41 pH Units (7.32-7.45) 11/14/17 04:53 ABG pCO2 55 mmHg (35-45) H 11/14/17 04:53 ABG pO2 94 mmHg (85-104) 11/14/17 04:53 ABG O2 Saturation 97 % (95-98) 11/14/17 04:53 PT/INR, D-dimer PT 14.7 Seconds (9.4-12.1) H 11/14/17 02:46 D-Dimer 961 ng/mLFEU (0-500) H 11/13/17 23:03 Consult Discharge Plan - Plan Referrals: Prema Avila, LEARNING STRATEGIST [Advanced Practice Nurse] - 11/28/17 3:15 pm (Please bring your photo ID and insurance card with you to your appointment.) NONE,PCP [Primary Care Provider] -
[2017-11-20] MEDS: predniSONE 20 MG TABLET PO SCH (17:29)
[2017-11-21] MEDS: *HR* OxyCODONE/APAP 10/325 TABLET PO PRN ×2 (00:44→06:51)
[2017-11-21] MEDS: Ipratropium/Albuterol Neb 3 ML IH SCH ×2 (03:26→10:19)
[2017-11-21] MEDS: *HR* LORazepam 1 MG TABLET PO PRN (04:12)
[2017-11-21] MEDS: *HR* Heparin 5,000 UNIT/ML VIAL SQ SCH (05:13)
[2017-11-21] MEDS: Gabapentin 300 MG CAPSULE PO SCH (08:50)
[2017-11-21] MEDS: predniSONE 20 MG TABLET PO SCH (08:50)
[2017-11-21] MEDS: Nicotine 21 MG PATCH.TD24 TD SCH (08:51)
[2017-11-21] MEDS: Budesonide/Formoterol 160/4.5 MDI IH SCH (10:20)
[2017-11-21 10:48] VITALS: BP 125/83
--- NOTE | 2017-11-21 11:06 | Discharge Summary ---
- NOTES TO OUTPATIENT PROVIDER Notes to Outpatient Provider: - Follow-up if compliant with steroid taper. - Has patches and gum at home for smoking cessation. - Requests that I give pain medication until he gets established with Pain Managment. Will not prescribe any narcotic medication today, especially no acute issues requiring pain medication. I suggested patient have pain medication (for chronic conditions) only refilled by presribing physician. Date of Encounter: 11/21/17 Time of Encounter: 11:00 - Discharge Diagnosis (1) Acute and chronic respiratory failure with hypoxia Priority: Primary Status: Acute (2) Community acquired pneumonia Priority: Secondary Status: Acute Qualifiers: Laterality: unspecified laterality Qualified Code(s): J18.9 - Pneumonia, unspecified organism (3) Acute exacerbation of chronic obstructive airways disease Priority: Secondary Status: Acute (4) Anemia Priority: Secondary Status: Chronic Qualifiers: Anemia type: iron deficiency Iron deficiency anemia type: other iron deficiency Qualified Code(s): D50.8 - Other iron deficiency anemias (5) Acute respiratory failure with hypoxia Priority: Secondary Status: Acute (6) DVT prophylaxis Priority: Secondary Status: Acute (7) Tobacco abuse Priority: Secondary Status: Chronic (8) Multifocal pneumonia Priority: Secondary Status: Acute Hospital course: Mr. Sen is a 52 year old male with histor of COPD on 3 L chronically, chronic pain, Tobacco abuse who is transferred from [facility] due to worsening respiratory status. From documentations and talking to the patient and his significant other, the patient presented there with SOB for 3-4 days with associated productive cough. He was wheezing at the time but not here today. No fevers but chills. He was found to have bilateral infiltrates and was admitted yesterday night for COPD exacerbation and pneumonia. He was on about 2 L O2. This evening he apparently had sudden change in respiratory status and became tachypnic and tachycardic. They had to go up on his O2 needs. There was no hospitalist during the night and the hospitalist there called after hours to see if the patient can be transferred to here and he was accepted. Upon transfer , he was tachypnic and was having conversational dyspnea. He was admitted to step-down unit but patient respiratory distress worsened and required brief transfer to ICU. He required bipap. He did not need intubation. A CTA showed multifocal pneumonia, was negative for PE. He was started on a course of Levaquin and completed 7 days of therapy. He was started on IV steroids and eventually tapered to oral Prednisone. Blood cultures that were obtained were negative. He was weaned back to home oxygen of 3 L. Patient was at baseline respiratory status after 8 days of treatment in hospital. He completed Levaquin 7 days of therapy. He was discharged home in stable condition. Had discussion about completing Prednisone taper, tobacco cessation. RX for metoprolol BID and Singulair were also given. - Time Spent with Patient Total time spent providing and/or coordinating discharge services: - Discharge Medications Prescriptions: Metoprolol [Lopressor] 12.5 mg PO BID #60 tablet Montelukast [Singulair] 10 mg PO DAILY #30 tablet Nicotine Patch [Nicoderm] 21 mg TD DAILY #30 patch.[id number] PredniSONE [Deltasone] See Taper PO TAPER #9 tablet Home Medications: Albuterol Sulfate [Albuterol Inhaler] 2 puff IH Q6HR 02/01/16 [History] Oxycodone HCl/Acetaminophen [Percocet 10-325 mg Tablet] 1 each PO Q6H 05/10/17 [ History] Fluticasone Furoate [Arnuity Ellipta] 1 puff IH DAILY 11/14/17 [History] Gabapentin [Neurontin] 600 mg PO QID 11/14/17 [History] Salmeterol Xinafoate [Serevent Diskus] 50 mcg IH DAILY 11/14/17 [History] Budesonide/Formoterol 160/4.5 [Symbicort 160/4.5] 1 puff IH BIDR inhaler [Rx] Metoprolol [Lopressor] 12.5 mg PO BID #60 tablet 11/21/17 [Rx] Montelukast [Singulair] 10 mg PO DAILY #30 tablet 11/21/17 [Rx] Nicotine Patch [Nicoderm] 21 mg TD DAILY #30 patch.td24 11/21/17 [Rx] PredniSONE [Deltasone] See Taper PO TAPER #9 tablet 11/21/17 [Rx] Allergies/Adverse Reactions: 3 Allergy/AdvReac Type Severity Reaction Status Date / Time propoxyphene Allergy Rash Verified 11/14/17 12:58 [From Darelsacet-N] tramadol Allergy Palpitation Verified 11/14/17 12:58 s Date of admission: 11/13/17 22:35 Primary care physician: PCP NONE Discharging clinician: Jimi Rivas - Constitutional Vitals: Temp Pulse Resp BP Pulse Ox 97.7 F 87 16 125/83 97 11/21/17 10:42 11/21/17 10:42 11/21/17 10:42 11/21/17 10:42 11/21/17 10:42 General appearance: Present: mild distress, A&O X 3, pleasant Exam: - Head Head exam: Present: normocephalic - Eye Eye exam: Present: conjuntiva pink - ENT ENT exam: Present: mucous membranes dry - Respiratory Respiratory exam: Present: rhonchi, wheezes Additional comments: Overall improving over last 2 days. - Cardiovascular Cardiovascular exam: Present: RRR. Absent: tachycardia - GI/Abdominal GI/Abdominal exam: Present: soft. Absent: tenderness - Extremities Exam Extremities exam: Present: warm. Absent: tenderness - Neurological Exam Neurological exam: Present: alert, oriented X3, no focal deficits - Skin Skin exam: Present: dry, warm - Patient Status Disposition: Home, Self-Care Condition: Undetermined Functional capacity at discharge: independent ambulation Overall status at discharge: patient is progressing back to baseline - Discharge Instructions Follow Up With: Prema Avila CNP [Advanced Practice Nurse] - 11/28/17 3:15 pm (Please bring your photo ID and insurance card with you to your appointment.) Additional Instructions: Follow-up in 2-3 days. - Diet and Activity Activity: increase activity as tolerated Diet: advance to your usual diet, low fat, low cholesterol, low salt diet
== END 2017-11-21 11:41 | disposition home or self-care (01) | DRG 139 ==
LOC: 2NNU → SUATTDRO 22:35 → ICNU 11-14 02:27 → 3ANU 11-16 15:09
PROVIDERS: ADMIT Internal Medicine; ATTEND Student in an Organized Health Care Education/Training Program

== ENCOUNTER 2022-02-24 08:43 | Observation (INO) ==
[2022-02-24] MEDS ORDERED: methylPREDNISolone 125 MG/2 ML VIAL IVP ONE (09:34)
[2022-02-24] MEDS ORDERED: Ipratropium/Albuterol Neb 3 ML IH ONE (09:34)
[2022-02-24] MEDS ORDERED: 0.9 % Sodium Chloride 1,000 ML IVC ONE (09:43)
[2022-02-24 10:58] LABS: Basophils % 0.2 %; Hematocrit 43.7 % (37.5-50.1); Hemoglobin 14.9 g/dL (12.9-16.9); Immature Granulocytes % 1.5 % (0-4); Lymphocytes # 0.7 K/mcL (0.6-4.6); Lymphocytes % 5.2 %; Mean Corpuscular HGB Conc 34.1 g/dL (31.6-35.5); Mean Corpuscular Hemoglobin 31.1 pg (28.0-33.3); Mean Corpuscular Volume 91.2 fL (83.0-100.0); Mean Platelet Volume 9.2 fL (9.4-12.4); Monocytes # 0.8 K/mcL (0.0-1.3); Platelet Count 273 K/mcL (140-400); Red Blood Count 4.79 M/mcL (4.19-5.50); Red Cell Distribution Width 14.1 % (11.5-14.5); Segmented Neutrophils % 87.1 %; White Blood Count 13.7 K/mcL (4.3-11.1)
[2022-02-24 11:19] LABS: BUN/Creatinine Ratio 37 (6-26); Blood Urea Nitrogen 23 mg/dL (6-20); Calcium 9.3 mg/dL (8.6-10.3); Carbon Dioxide 35 mEq/L (23-29); Chloride 94 mEq/L (98-107); Glucose 220 mg/dL (70-105); Osmolality,Calculated 296 (280-300); Potassium 3.9 mEq/L (3.5-5.1); Sodium 138 mEq/L (136-145); Troponin I 0.03 ng/mL (< 0.04)
[2022-02-24] MEDS ORDERED: Naloxone 0.4 MG/ML INJ IVP PRN (11:55)
[2022-02-24] MEDS ORDERED: *HR* Metoprolol 5 MG/5 ML VIAL IVP ONE (12:00)
[2022-02-24] MEDS ORDERED: *HR* OxyCODONE/APAP 5/325 TABLET PO ONE (12:01)
[2022-02-24] MEDS ORDERED: hydroCHLOROthiazide 25 MG TABLET PO STA (12:01)
[2022-02-24] MEDS ORDERED: levoFLOXacin 750 MG TABLET PO SCH (13:30)
[2022-02-24] MEDS ORDERED: lisinopriL 10 MG TABLET PO SCH (13:30)
[2022-02-24 15:12] LABS: Adenovirus Not Detected (Not Detect); Bordetella Pertussis Not Detected (Not Detect); Chlamydophila pneumoniae Not Detected (Not Detect); Coronavirus 229E Not Detected (Not Detect); Coronavirus HKU1 Not Detected (Not Detect); Coronavirus NL63 Not Detected (Not Detect); Coronavirus OC43 Not Detected (Not Detect); Human Metapneumovirus Not Detected (Not Detect); Human Rhinovirus/Enterovirus Not Detected (Not Detect); Influenza A Subtype 2009 H1 Not Detected (Not Detect); Influenza B Not Detected (Not Detect); Mycoplasma pneumoniae Not Detected (Not Detect); Parainfluenza Virus 1 Not Detected (Not Detect); Parainfluenza Virus 2 Not Detected (Not Detect); Parainfluenza Virus 3 Not Detected (Not Detect); Parainfluenza Virus 4 Not Detected (Not Detect); Respiratory Syncytial Virus Not Detected (Not Detect); SARS-CoV-2 Not Detected (Not Detect)
[2022-02-24] MEDS: *HR* Heparin 5,000 UNIT/ML VIAL SQ SCH (16:41)
[2022-02-24] MEDS ORDERED: *HR* OxyCODONE Immed Rel 5 MG TABLET PO ONE (20:01)
[2022-02-24] MEDS: Levalbuterol Neb 1.25 MG/3 ML IH SCH ×2 (20:01→22:30)
[2022-02-25 02:14] LABS: Basophils % 0.2 %; Hematocrit 41.8 % (37.5-50.1); Hemoglobin 14.4 g/dL (12.9-16.9); Immature Granulocytes % 1.7 % (0-4); Lymphocytes # 0.9 K/mcL (0.6-4.6); Lymphocytes % 6.4 %; Mean Corpuscular HGB Conc 34.4 g/dL (31.6-35.5); Mean Corpuscular Hemoglobin 31.7 pg (28.0-33.3); Mean Corpuscular Volume 92.1 fL (83.0-100.0); Mean Platelet Volume 9.1 fL (9.4-12.4); Monocytes # 0.7 K/mcL (0.0-1.3); Monocytes % 5.1 %; Neutrophils # 12.6 K/mcL (1.6-8.9); Platelet Count 258 K/mcL (140-400); Red Blood Count 4.54 M/mcL (4.19-5.50); Red Cell Distribution Width 14.1 % (11.5-14.5); Segmented Neutrophils % 86.6 %; White Blood Count 14.5 K/mcL (4.3-11.1)
[2022-02-25 02:37] LABS: BUN/Creatinine Ratio 28 (6-26); Blood Urea Nitrogen 17 mg/dL (6-20); Calcium 8.8 mg/dL (8.6-10.3); Carbon Dioxide 33 mEq/L (23-29); Chloride 94 mEq/L (98-107); Glucose 229 mg/dL (70-105); Magnesium 1.8 mg/dL (1.6-2.6); Osmolality,Calculated 291 (280-300); Phosphorous 2.7 mg/dL (2.7-4.5); Potassium 3.6 mEq/L (3.5-5.1); Sodium 136 mEq/L (136-145)
[2022-02-25 02:46] VITALS: TEMP 98.1
[2022-02-25] MEDS: Levalbuterol Neb 1.25 MG/3 ML IH SCH (04:08)
[2022-02-25] MEDS: *HR* Heparin 5,000 UNIT/ML VIAL SQ SCH (05:19)
[2022-02-25] MEDS ORDERED: MethylPREDNISolone 40 MG/ML VIAL IVP SCH (06:00)
[2022-02-25 07:19] VITALS: BP 146/77; PULSE 104; O2SAT 98
[2022-02-25] MEDS ORDERED: CYCLOBENZAPRINE HCL 5 MG PO PRN (08:02)
[2022-02-25] MEDS ORDERED: NON-FORMULARY MEDICATION 1 EACH EACH (Gabapentin [Neurontin] 600 MG Tablet) PO SCH (09:00)
[2022-02-25] MEDS ORDERED: NON-FORMULARY MEDICATION 1 EACH EACH (Budesonide/Glycopyr/Formoterol [Breztri Aerosphere I IH SCH (09:00)
[2022-02-25] MEDS ORDERED: NON-FORMULARY MEDICATION 1 EACH EACH (Roflumilast [Daliresp] 500 MCG Tablet) PO SCH (09:00)
[2022-02-25] MEDS ORDERED: hydroCHLOROthiazide 25 MG TABLET PO SCH (09:00)
== END 2022-02-25 07:38 | disposition left against medical advice (07) ==
LOC: 3BNU 08:43 → EMEROOARM 08:43 → SUATTDRO 12:32 → 3BNU 14:20
PROVIDERS: ADMIT Internal Medicine; ATTEND Internal Medicine